=== PATIENT | male | born 1955 | race Caucasian/White ===

== ENCOUNTER 2024-06-26 15:46 | Inpatient (IN) | payer MEDICARE, OTHER, SELFPAY ==
[2024-06-26] VITALS (17 sets, daily range): BP systolic 111–160; BP diastolic 65–131; BMI 29.3
--- NOTE | 2024-06-26 11:35 | W.PN.CARDCBS ---
Today's Communication / Plan
-
LH
trend troponin/CKMB to peak
Impression / Plan
-
This is the H&P summary.
Full H&P scanned into chart.
PCP: Ximena Fonseca,
CDY: Nick Louise MD (none prior to admission, seen in ER)
68 y/o, PMH sig for untreated severe dyslipidemia, active doing yard work and walking dog daily without symptoms.
New onset chest heaviness and arm tingling that started at 2AM prior to going to bed. Denies diaphoresis, dyspnea, palps. No relief from tylenol and therefore brought him to ER. Initial EKG NSR w/RBBB but repeat showed subtle anterior ST
elevations with lateral ST depressions. First HS troponin 17 but repeat elevated to 89 with correlating CK 169, MB 11.4. Started on heparin gtt and given aspirin 324mg, as well as SLNTG for relief of symptoms. BP elevated 160-180s
Echo at [facility] today- preserved LVSF, EF 50%, anteroseptal, apical anterior, apical HK, no sig valvular abnormalities.
Transferred for [facility] today.
IMPRESSION:
Acute NSTEMI
Anterior/apical HK
Severe untreated HLD (last LDL 172 03/2024)
HTN
RBBB
Inguinal hernia (2012)
PLAN:
[facility] today
d/c heparin on arrival from [facility]
trend troponin/CKMB to peak
Anticipate DAPT w/asa, brilinta- CM to check cost
monitor BP with new start beta kiersten, aceI
Started on atorvastatin at [facility] for prior lipid profile- continue
cardiac rehab consult
followup w/Dr. Louise at [facility] at discharge
Progress Note - [facility]
Subjective
Date of Service: June 26, 2024
[2024-06-26 14:43] LABS: Total CK 524 U/L (55-170)
[2024-06-26 15:13] LABS: ACT-LR - POC 279 Seconds (116-155)
--- NOTE | 2024-06-26 16:00 | ITS.CL.CATH ---
Bookstore [facility] - Catheterization
Cardiac Catheterization
Procedure Report:
LEFT HEART CATHETERIZATION
Date of Procedure: June 26, 2024
Procedures performed:
1: Coronary angiography
2: Left ventricular hemodynamic assessment
Primary Care Physician: Dr. Ximena Fonseca
Primary Anesthesiology Tech: Dr. Nick Louise
INDICATION: The patient is a 68-year-old man who presents with a non-ST elevation SC. On arrival to the [facility] he is reporting 1 out of 10 chest discomfort. Echocardiography performed at [facility] showed a low normal ejection fraction at 50%
with mid apical anterior septum, apical anterior and apical hypokinesis.
ACCESS: The patient was prepped and draped in usual sterile fashion. A 6 Irish sheath was placed in the right radial artery using the Seldinger over the wire technique.
HEMODYNAMIC FINDINGS (mmHg):
LV(s/d,EDP): 140/14, 32
Ao(s/d,m): 140/83, 109
ANGIOGRAPHIC FINDINGS:
Single-plane Left Ventriculography in ZULETA Projection: Not done.
Coronary Angiography:
Dominance: Right
Left Main: Normal
Left Anterior Descending: The LAD is a medium caliber vessel that has diffuse proximal 20% disease. The LAD gives rise to 2 tiny diagonal branches which have limited vascular supply but are patent. There is a short segment EQUIPMENT TESTER at the first septal
combination technician. The mid and distal LAD fill via faint left to left and more prominent right to left collaterals revealing a good LAD target.
Left Circumflex: The left circumflex is a large-caliber nondominant system that gives rise to 2 major obtuse marginal branches. The first obtuse marginal branch is a large-caliber tortuous vessel that has a proximal 30% followed by a mid smooth 70%
stenosis and MAMIE-3 distal flow. The second obtuse marginal branch has a smooth 40 to 50% proximal stenosis followed by a preocclusive 99% mid stenosis and MAMIE II distal flow with competitive flow from right to left collaterals.
Right Coronary: The right coronary artery is a large-caliber dominant vessel that gives rise to a large caliber posterior descending artery and medium caliber posterior left ventricular branch system with 4 major branches that are widely patent.
The right coronary artery has mild luminal irregularities throughout the AV groove. The mid to distal PDA has moderate diffuse luminal irregularities without clearly obstructive disease and normal flow.
Note: I called Dr. Richard Govea into the control room to discuss the patient's anatomy. After IV nitro and sedation the patient reported being chest pain-free. He remained hemodynamically stable. I elected to terminate the procedure.
Fluoroscopy Time (min): 5.2
Radiation Dose (mGy): 557
DAP (Gy.cm2): 47
Closure device: None. A TR band was applied for hemostasis at the right wrist.
Complications: None.
ASSESSMENT:
1: Severe multivessel obstructive coronary artery disease with what appears to be a short segment EQUIPMENT TESTER of the LAD just after the takeoff of a small high diagonal branch. The culprit is his second obtuse marginal branch which has a resting flow
abnormality but fills via both antegrade left and right to left collaterals.
2: Elevated left ventricular filling pressures.
CONCLUSIONS and RECOMMENDATIONS:
1: CT surgical evaluation for CABG. If he refuses CABG I would attempt a PCI of the short segment EQUIPMENT TESTER and percutaneous treatment of the culprit OM2.
Bello Ramirez M.D.
Copy to: Dr. Ximena Fonseca
--- NOTE | 2024-06-26 16:15 | CONSULT.CT ---
Consultation
-
Date/Time Consultation Requested: 06/26/2024
Date/Time Consultation Performed: 06/26/2024
Requesting Provider: Dr. Ramirez
Performing Provider: Nyla albert
Reason for Consultation: Evaluation for coronary artery bypass grafting
Patient History
Physicians
Family Physician: Ximena Fonseca
Inpatient Underground Repairer: Dr. Ramirez
History of Present Illness
Patient is a 68-year-old gentleman with a history of untreated severe hyperlipidemia. He presented to the emergency department at [facility] with chest heaviness and arm tingling that began around 2 AM this morning. Patient states he was
in his usual state of health until approximately 2 AM when he decided to go to bed. This is a normal bedtime for him. He noticed that his arms felt heavy and tingly and was also having chest heaviness. He tried to wait it out and took some
Tylenol. Symptoms did not improve and eventually asked his to bring him to the emergency department. In the emergency department [facility] he was evaluated and initial EKG was sinus rhythm with right bundle branch block. Repeat EKG
later showed sinus rhythm with right bundle branch block however now there was subtle ST elevation in lead V2 as well as ST depressions in V5 and V6. He ruled in for NSTEMI with serial enzyme studies. He continued to have mild 3 out of 10 mild
chest heaviness in the emergency department. He denied any prior episodes of chest heaviness prior to his admission. Transthoracic echocardiogram performed at [facility] showed preserved left ventricular systolic function. Left
ventricular ejection fraction was 50%. Normal LV diastolic function. No significant valvular disease.
He was started on nitroglycerin and heparin and transferred to [facility] for cardiac catheterization. Cardiac catheterization performed by Dr. Mario Ramirez showed three-vessel coronary artery disease. Cardiothoracic surgery was consulted
for surgical revascularization.
Preoperative studies will be ordered and all studies reviewed by attending cardiothoracic surgeons. Plan to discuss with patient and family tomorrow.
Past Medical History
Past Medical History: Angina, BPH, CAD, HTN, Hypercholesterolemia and RI
Past Surgical History
Past Surgical History: Abdominal (Inguinal hernia 2012) and Other (Cataracts 2 years ago)
Dental History
n/a
Family History
Mother: at Age
Father: at Age (Father had high cholesterol)
Family Medical History: CAD, Hypertension and Other (High cholesterol)
Social History
Alcohol: Occasional (Drinks wine approximately once a month)
Drug: None
Tobacco: Non-Smoker
Personal:
Living: With Spouse
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
Covid Vaccination History:
Admits to 2 COVID vaccines/denies history of COVID infection
Allergies
Allergy/AdvReac Type Severity Reaction Status Date / Time
No Known Allergies Allergy Unverified 06/26/24 14:07
Home Medications
�Medication �Instructions �Recorded �Confirmed �Type
latanoprost 0.005 % eye drops 1 drp ophthalmic (eye) QPM 06/26/24 06/26/24 History
Review of Systems
-
History Source: Patient and Family
General: Reports Fatigue
HEENT: Reports No Symptoms
Respiratory: Reports No Symptoms
Cardiac: Reports Chest Pain and CAD
Abdomen/GI: Reports No Symptoms
: Reports Nocturia
Musculoskeletal: Reports No Symptoms
Skin: Reports No Symptoms
Neurological: Reports No Symptoms
Vascular: Reports No Symptoms
Physical Exam
Vital Signs
Temp 98.4 F 06/26/24 16:01
Temp route: Oral 06/26/24 16:01
Pulse 63 06/26/24 13:25
Resp Rate 18 06/26/24 16:01
Blood pressure 160/102 06/26/24 13:25
Blood pressure extremity used: Right upper arm 06/26/24 16:01
Position: Lying 06/26/24 16:01
SaO2 95 06/26/24 16:01
Oxygen Mode of Delivery Room air 06/26/24 16:01
Can the patient verbally communicate their pain? Yes 06/26/24 13:25
Actual Weight 203 lb 14.841 oz 06/26/24 15:34
Body Mass Index (BMI) 29.3 06/26/24 15:34
Labs
Troponin I 3.650 ng/ml H* 06/26/24 13:23
Exam
General: Well Developed, Well Nourished, No Apparent Distress and Comfortable
HEENT: Normocephalic, Anicteric and Atraumatic
Neck: Trachea Midline
Respiratory: Clear
Cardiac: Regular Rhythm and Carotid Pulses
GI: Soft, Non Tender, Non Distended and Normal Bowel Sounds
Rectal: Deferred by Provider
Skin: Warm and Dry
Neuro: Awake, Alert, Oriented and AO x 3
Extremities: Pulses (Distal pulses intact bilaterally. Dorsalis pedis pulse +2 bilaterally/posterior tibial pulses +2 bilaterally/no lower extremity edema/no calf tenderness/feet cool and dry)
Lymph: No Lymphadenopathy (No palpable lymphadenopathy)
Psych: Calm
Assessment / Plan
-
Assessment:
Acute NSTEMI-continue heparin / nitroglycerin drip.
Multivessel coronary artery disease status post cardiac catheterization-continue to optimize medical management
Hyperlipidemia
Hypertension
Right bundle branch block
Plan:
Preoperative studies ordered
Started on statin for hyperlipidemia
All studies to be reviewed by attending cardiothoracic surgeons and will discuss surgical plan and timing with patient and family.
[2024-06-26] MEDS: LASIX 20 MG IV (16:20)
[2024-06-26] MEDS: NITROGLYCERIN PREMIX 250 IV (17:20)
[2024-06-26 17:58] LABS: Hematocrit 21.9 % (39.0-52.0); Hemoglobin 7.7 g/dL (13.0-18.0); Mean Corp Hgb Conc. 35.2 g/dL (33.0-37.0); Mean Corpuscular Hgb 32.8 pg (27.0-31.0); Mean Corpuscular Volume 93.2 fL (80.0-94.0); Mean Platelet Volume 8.5 fL (7.4-10.4); Platelet Count 110 10^3/uL (130-400); Red Blood Cell Count 2.35 10^6/uL (4.70-6.10); Red Cell Dist. Width 12.3 % (11.5-14.5); White Blood Cell Count 6.6 10^3/uL (4.8-10.8)
[2024-06-26 18:26] LABS: APTT 46.7 Sec (23.4-35.0)
[2024-06-26] MEDS: LIPITOR 80 MG PO (18:32)
--- NOTE | 2024-06-26 19:47 | PTCARENOTE ---
Rec'd Pt 1545 A,A+O x3, denies pain, R radial band intact, C+D. + radial pulse. Pt needed to blood drawn, while attempting to draw blood , Pt felt nauseous and warm. BP 130's/80's. We gave Pt some time before attempting to draw his blood again. He
then tiffany the blood draw fine, after giving him 15-20 min rest.
[2024-06-26 20:14] LABS: Hemoglobin 14.5 g/dL (13.0-18.0); Mean Corp Hgb Conc. 35.4 g/dL (33.0-37.0); Mean Corpuscular Hgb 31.5 pg (27.0-31.0); Mean Corpuscular Volume 89.1 fL (80.0-94.0); Mean Platelet Volume 8.8 fL (7.4-10.4); Platelet Count 211 10^3/uL (130-400); Red Cell Dist. Width 12.4 % (11.5-14.5); White Blood Cell Count 11.2 10^3/uL (4.8-10.8)
[2024-06-26 20:24] LABS: Total CK 773 U/L (55-170)
[2024-06-26 20:55] LABS: CKMB 60.5 ng/ml (0.0-2.4)
[2024-06-26] MEDS: XALATAN OPHTHALMIC SOLUTION 1 DROP OPHTH (21:07)
[2024-06-26] MEDS: HEPARIN 25000 UNITS/250 ML IV (21:07)
[2024-06-27] VITALS (8 sets, daily range): BP systolic 116–134; BP diastolic 57–78; BMI 27.4
[2024-06-27 04:04] LABS: Hematocrit 41.1 % (39.0-52.0); Mean Corp Hgb Conc. 34.1 g/dL (33.0-37.0); Mean Corpuscular Hgb 31.7 pg (27.0-31.0); Mean Corpuscular Volume 93.2 fL (80.0-94.0); Mean Platelet Volume 9.1 fL (7.4-10.4); Platelet Count 230 10^3/uL (130-400); Red Blood Cell Count 4.41 10^6/uL (4.70-6.10); Red Cell Dist. Width 12.4 % (11.5-14.5); White Blood Cell Count 12.5 10^3/uL (4.8-10.8)
[2024-06-27 04:32] LABS: INR 1.01; PT 13.6 Sec (11.4-14.6)
[2024-06-27 04:33] LABS: APTT 38.5 Sec (23.4-35.0)
[2024-06-27 04:44] LABS: ALT (SGPT) 38 U/L (0-50); AST (SGOT) 158 U/L (17-59); Albumin 3.8 g/dl (3.5-5.0); Alkaline Phosphatase 60 U/L (38-126); Blood Urea Nitrogen 17 mg/dl (9-20); Calcium 8.7 mg/dl (8.4-10.2); Carbon Dioxide 25 mmol/L (22-30); Chloride 102 mmol/L (98-107); Direct Bilirubin 0.1 mg/dl (0.0-0.4); Estimated Creatinine Clearance 91 ml/min; Glucose 109 mg/dl (70-99); HDL Cholesterol 43 mg/dl; LDL Cholesterol, Calculated 145 mg/dl; Potassium 3.6 mmol/L (3.5-5.1); Sodium 136 mmol/L (135-145); Total Bilirubin 1.1 mg/dl (0.2-1.3); Total Cholesterol 204 mg/dl (50-199); Triglyceride 82 mg/dl (10-149); Very Low Density Lipoprotein 16 mg/dl (0-30); eGFR > 60.00
[2024-06-27 04:46] LABS: Total CK 958 U/L (55-170)
[2024-06-27 05:15] LABS: CKMB 52.8 ng/ml (0.0-2.4)
--- NOTE | 2024-06-27 05:26 | PTCARENOTE ---
Pt received at change of shift. SR with BBB on tele with HR 60s. R radial band removed at 2039, site dressed with sterile gauze and Tegaderm, site c/d/i with no complications noted. Education provided on activity restrictions and pt verbalized
understanding. Nitro gtt infusing at 20mcg/min, Heparin infusing at 1200units/hr. Pt denies CP and SOB. Ambulating independently in room without difficulty. Can make needs known. Call pierson within reach.
[2024-06-27] MEDS: LOW STRENGTH ASPIRIN 81 MG PO (08:10)
[2024-06-27 08:39] LABS: Glycohemoglobin (HgbA1c) 5.1 % (4.0-5.6)
[2024-06-27 09:02] LABS: Total CK 933 U/L (55-170)
[2024-06-27 09:51] LABS: CKMB 40.4 ng/ml (0.0-2.4)
--- NOTE | 2024-06-27 10:08 | PTCARENOTE ---
Received patient this morning resting in bed. IV heparin infusing at 1200 units/hr with NTG gtt infusing at 20mcg. Patient denies any chest pain, VSS. Patient sent for his CT of the chest and U/S of the carotids. Labs sent as ordered, troponin still
rising slightly to 22.3, M. Mat TOLL TICKET CLERK notified and will repeat again as ordered. CT surgery notified that patient is back from testing so they may discuss plan of care.
--- NOTE | 2024-06-27 10:13 | CM ---
Reviewed chart. Met with Mr. Reese to review discharge plans. He states prior to admission he resides with his spouse in a two story home without any steps to enter. He states his primary suite is in the first floor. He states prior to
admission he was independent with ambulation and adls. He states he does not have any DME in the home. He states he has a prescription plan and uses [facility]. He states his spouse works outside the home as a registrar college or university and she is
currently on break and will be home until August 02, 2024. Medical work-up in progress. The discharge plan is to return home with his spouse and a home visit by the Transitional Care Nurse when medically stable.
We reviewed pre-op and post-op routines. We briefly reviewed the shower instructions. We also reviewed restrictions including sternal precautions and driving restrictions. We discussed a home visit by the Transitional Care Nurse. He is agreeable
to a home visit. Gave him the Cardiothoracic Surgery Educational Booklet. The plan is for CABG on Wednesday06/28/24.
--- NOTE | 2024-06-27 10:34 | W.PN.CARDCBS ---
Today's Communication / Plan
-
Reviewed cath with pt.
CT surgical eval and work up ongoing
Carotid u/s pending.
Cont IV Heparin
Wean IV nitro next 24 hrs.
Trend troponin until they peak.
Cont ASA and hold Plavix in anticipation of CABG.
New to Lipitor. LDL goal at least less than 70.
New to beta kiersten and ACEI.
Followup w/Dr. Louise at [facility] at discharge
Impression / Plan
-
.
PCP: Ximena Fonseca,
CDY: Nick Louise MD (none prior to admission, seen in ER)
HPI: 68 y/o, PMH sig for untreated severe dyslipidemia, active doing yard work and walking dog daily without symptoms.
New onset chest heaviness and arm tingling that started at 2AM prior to going to bed. Denies diaphoresis, dyspnea, palps. No relief from tylenol and therefore brought him to ER. Initial EKG NSR w/RBBB but repeat showed subtle anterior ST
elevations with lateral ST depressions. First HS troponin 17 but repeat elevated to 89 with correlating CK 169, MB 11.4. Started on heparin gtt and given aspirin 324mg, as well as SLNTG for relief of symptoms. BP elevated 160-180s
Echo at [facility] today- preserved LVSF, EF 50%, anteroseptal, apical anterior, apical HK, no sig valvular abnormalities.
Transferred for [facility] today.
IMPRESSION:
Acute NSTEMI
Anterior/apical HK
Multivessel CAD
Severe untreated HLD (last LDL 172 03/2024)
HTN
RBBB
Inguinal hernia (2012)
PLAN:
Reviewed cath with pt.
CT surgical eval and work up ongoing
Carotid u/s pending.
Cont IV Heparin
Wean IV nitro next 24 hrs.
Trend troponin until they peak.
Cont ASA and hold Plavix in anticipation of CABG.
New to Lipitor. LDL goal at least less than 70.
New to beta kiersten and ACEI.
Followup w/Dr. Louise at [facility] at discharge
Progress Note - Pick Up Driver
Subjective
Date of Service: June 27, 2024
Pt seen and examined. No complaints. No chest pain or shortness of breath.
Objective
Labs:
06/27/24 03:34
06/27/24 03:34
Labs
Hgb 14.0 g/dL (13.0-18.0) 06/27/24 03:34
Hct 41.1 % (39.0-52.0) 06/27/24 03:34
Plt Count 230 10^3/uL (130-400) 06/27/24 03:34
PT Cancelled 06/27/24 06:00
INR Cancelled 06/27/24 06:00
APTT Cancelled 06/27/24 12:00
Sodium 136 mmol/L (135-145) 06/27/24 03:34
Potassium 3.6 mmol/L (3.5-5.1) 06/27/24 03:34
BUN 17 mg/dl (9-20) 06/27/24 03:34
Creatinine 0.8 mg/dL (0.7-1.3) 06/27/24 03:34
Glucose 109 mg/dl (70-99) H 06/27/24 03:34
Troponins
06/26/24 06/26/24 06/27/24
13:23 19:52 03:34
Troponin I 3.650 H* 10.100 H* D 19.500 H* D
06/27/24
08:18
Troponin I 22.300 H*
Vital Signs and I&O:
Vital Signs
Temp Pulse Resp BP Pulse Ox
99.6 F 64 18 119/62 98
06/27/24 07:21 06/27/24 08:00 06/27/24 07:21 06/27/24 07:23 06/27/24 07:21
Vital Signs
Temp Pulse Resp BP Pulse Ox
99.6 F 64 18 119/62 98
06/27/24 07:21 06/27/24 08:00 06/27/24 07:21 06/27/24 07:23 06/27/24 07:21
Intake & Output
06/25/24 06/26/24 06/27/24 06/28/24
06:59 06:59 06:59 06:59
Intake Total 640 / 640
Output Total 1700 / 1700
Balance -1060 / -1060
Physical Exam
Physical Exam
General: No acute distress, AAOX3
Neck: Negative JVD
Heart: Regular, Negative S3 positive S1/S2, Negative S4, No murmur
Lungs: CTA b/l, negative wheezes/rales/rhonchi
Abd: Positive BS, NT/ND, neg rebound/rigidity/guarding
Ext: Negative cyanosis/clubbing/edema
Neuro: nonfocal
[2024-06-27 12:23] LABS: APTT 54.8 Sec (23.4-35.0)
--- NOTE | 2024-06-27 14:03 | PTCARENOTE ---
Report called to [facility] on 2S, patient transferred to room 2104, for surgery tomorrow morning. Belongings sent with the patient, his and son accompanied him.
--- NOTE | 2024-06-27 14:32 | W.PN.UPDATE ---
Update Note
Progress Note Update
CTS risk calc.
Procedure Type:�Isolated CABG
PERIOPERATIVE OUTCOME ESTIMATE %
Operative Mortality 0.709%
Morbidity & Mortality 3.94%
Stroke 0.791%
Renal Failure 0.402%
Reoperation 1.86%
Prolonged Ventilation 1.87%
Deep Sternal Wound Infection 0.087%
Long Hospital Stay (>14 days) 1.89%
Short Hospital Stay (<6 days)* 68%
*higher values reflect a better outcome
Clinical Summary
Planned Surgery: Isolated CABG, Urgent, First cardiovascular surgery
Demographics: 68 year old, White, male, 86kg, 178cm, BMI: 27.1 kg/m�
Insurance/Payor: Commercial
Lab Values: Creatinine: 0.8 mg/dL, Hematocrit: 41.1%, WBC Count: 12.5 10�/�L, Platelet Count: 189764 cells/�L
Substance Abuse: Never smoker, Alcohol use: <=1 drink/week
Risk Factors / Comorbidities: Hypertension, Family Hx of CAD
Cardiac Status: NYHA Class II, Ejection Fraction = 50%
Coronary Artery Disease: 2 vessels diseased, Proximal LAD Stenosis >=70%, Non-ST Elevation PR, PR: 1 to 7 Days
--- NOTE | 2024-06-27 16:26 | PTCARENOTE ---
Patient transferred to room 2265 for surgery tomorrow, report given to Bhavana. Dr. Corbin to see the patient, waiting with the patient in the room.
--- NOTE | 2024-06-27 17:25 | PTCARENOTE ---
Received pt from IVU RN. AAO x 3 ambulating in room, NItro and Heparin infusing. Placed on monitor. DR Corbin in to see pt
[2024-06-27] MEDS: LIPITOR 80 MG PO (17:44)
[2024-06-27] MEDS: XALATAN OPHTHALMIC SOLUTION 1 DROP OPHTH (17:54)
--- NOTE | 2024-06-27 17:58 | W.PN.UPDATE ---
Update Note
Progress Note Update
CARDIAC SURGERY ATTENDING:
I had a long conversation with Mr. Reese and his at bedside. He is an extremely pleasant 68-year-old gentleman with multivessel CAD including a MORTAR MAKER of his LAD and significant left circumflex disease. His right coronary has very distal
disease. I believe he will benefit from surgical coronary revascularization. I anticipate LARS to LAD, greater saphenous vein to OM1, and greater saphenous vein to OM 2. His RCA/PDA does not require surgical bypass. He has 50 to 69% JADE disease
and less than 50% LICA disease with antegrade flow in bilateral vertebrals. His CT chest demonstrated severe calcific atherosclerotic plaques in his left coronary artery and moderate calcific atherosclerotic plaque in his right coronary artery he
had mild plaque in his thoracic aorta, but his ascending aorta is largely uninvolved. He had some minor subsegmental atelectasis and scarring in bilateral basal segments of the lungs. His troponins peaked at 22.3 and are downtrending. The
remainder of his lab work is unremarkable.
We discussed his coronary pathology, the proposed operative interventions, the associated operative risks (including, but not limited to, , stroke, DC, arrhythmia, PNA, DAKOTAH/F, bleeding, and infection), reviewed the expected in-hospital
postprocedural course, and discussed expected outpatient recovery. All questions were answered to the best of my abilities. The patient is agreeable to proceed with surgery. Informed consent has been obtained. I will proceed to surgery tomorrow
morning 06/28/2024.
Thank you for the opportunity to precipitate in the care of this patient.
Octavio Corbin MD
[phone]
.
[2024-06-27 18:27] LABS: APTT 85.9 Sec (23.4-35.0)
--- NOTE | 2024-06-27 20:00 | PTCARENOTE ---
Assumed care of patient at 1900. Patient is AOx4, follows commands appropriately, moves all extremities. Lung sounds are clear and equal bilat. saO2 94% on RA. Heart sounds are audible, patient is SR with PVCs on the monitor, normal palpable pulses,
and no observable edema. Patient has normal active BS throughout all four quadrants and is voiding without difficulty in bathroom. Patient has L FA PIV receiving heparin and nitro gtt. Skin grossly intact. No c/o pain. Patient clipped and given CHG
shower. Call pierson within reach.
[2024-06-28] VITALS (20 sets, daily range): BP systolic 86–142; BP diastolic 53–75; BMI 27.2
--- NOTE | 2024-06-28 00:28 | PTCARENOTE ---
Patient reassessed. VSS. No c/o pain. Remains SR with PVCs on the monitor.
[2024-06-28 04:19] LABS: Hematocrit 37.4 % (39.0-52.0); Hemoglobin 13.1 g/dL (13.0-18.0); Mean Corpuscular Hgb 31.8 pg (27.0-31.0); Mean Corpuscular Volume 90.8 fL (80.0-94.0); Mean Platelet Volume 9.1 fL (7.4-10.4); Platelet Count 205 10^3/uL (130-400); Red Blood Cell Count 4.12 10^6/uL (4.70-6.10); Red Cell Dist. Width 12.3 % (11.5-14.5); White Blood Cell Count 12.6 10^3/uL (4.8-10.8)
[2024-06-28 04:30] LABS: APTT 96.3 Sec (23.4-35.0)
[2024-06-28 04:38] LABS: Blood Urea Nitrogen 19 mg/dl (9-20); Calcium 8.8 mg/dl (8.4-10.2); Carbon Dioxide 27 mmol/L (22-30); Chloride 102 mmol/L (98-107); Estimated Creatinine Clearance 81 ml/min; Glucose 115 mg/dl (70-99); Potassium 3.6 mmol/L (3.5-5.1); Sodium 135 mmol/L (135-145); eGFR > 60.00
[2024-06-28] MEDS: PROTONIX 40 MG PO (05:40)
[2024-06-28] MEDS: MAGNESIUM OXIDE 500 MG PO (05:40)
[2024-06-28] MEDS: BACTROBAN 2% OINTMENT 1 APPLIC NASAL ×2 (05:40→20:37)
[2024-06-28] MEDS: LOPRESSOR 25 MG PO (05:40)
--- NOTE | 2024-06-28 07:27 | PTCARENOTE ---
AM hygiene care provided. Second G shower provided. Preop medications administered. Patient transported to [facility] at approx 0650 without incident.
[2024-06-28 07:49] LABS: Urine Albumin Trace (Neg - Trace); Urine Bilirubin Negative (Negative); Urine Character Slightly Cloudy (Clear); Urine Color Yellow; Urine Glucose Negative (Negative); Urine Ketone 1+ (Negative); Urine Leukocyte Negative (Negative); Urine Nitrite Negative (Negative); Urine Occult Blood 4+ (Negative); Urine Urobilinogen Negative (Neg - 1+)
[2024-06-28 07:54] LABS: ACT+ - POC 101 Seconds (82-134)
[2024-06-28 08:37] LABS: Urine Mucus Few
[2024-06-28 08:38] LABS: Urine Red Blood Cell >100 /HPF (0-2)
[2024-06-28 08:39] LABS: Urine Bacteria Few (Negative)
[2024-06-28 09:49] LABS: ACT+ - POC 599 Seconds (82-134)
[2024-06-28 10:08] LABS: B.E. - POC 0.3 mmol/L; Glucose - POC 105 mg/dl (70-99); HCO3 - POC 24 mmol/L (21-28); Hematocrit - POC 34 % PCV (42-52); Hemodilution- POC No; Hemoglobin Calculated - POC 11.7; Ionized Calcium - POC 1.15 mmol/L (1.15-1.33); O2 Saturation %Calculated-POC 99.7 % (94-98); PCO2 - POC 36 mmHg (35-48); PO2 - POC 186 mmHg (83-108); POC Comment PRE; Potassium - POC 3.2 mmol/L (3.5-5.1); Sodium - POC 140 mmol/L (136-145); Specimen Type - POC Arterial; pH - POC 7.44 (7.35-7.45)
[2024-06-28 10:25] LABS: ACT+ - POC 601 Seconds (82-134)
[2024-06-28 10:46] LABS: B.E. - POC 3.9 mmol/L; Glucose - POC 99 mg/dl (70-99); HCO3 - POC 28 mmol/L (21-28); Hematocrit - POC 27 % PCV (42-52); Hemodilution- POC Yes; Hemoglobin Calculated - POC 9.3; PCO2 - POC 41 mmHg (35-48); PO2 - POC 426 mmHg (83-108); POC Comment CPB; Potassium - POC 4.1 mmol/L (3.5-5.1); Sodium - POC 139 mmol/L (136-145); Specimen Type - POC Arterial; pH - POC 7.44 (7.35-7.45)
[2024-06-28 11:04] LABS: ACT+ - POC 512 Seconds (82-134)
[2024-06-28 11:24] LABS: B.E. - POC -1.4 mmol/L; Glucose - POC 145 mg/dl (70-99); HCO3 - POC 24 mmol/L (21-28); Hematocrit - POC 34 % PCV (42-52); Hemodilution- POC Yes; Hemoglobin Calculated - POC 11.6; Ionized Calcium - POC 1.07 mmol/L (1.15-1.33); O2 Saturation %Calculated-POC 99.9 % (94-98); PCO2 - POC 41 mmHg (35-48); PO2 - POC 264 mmHg (83-108); POC Comment CPB; Potassium - POC 4.6 mmol/L (3.5-5.1); Sodium - POC 139 mmol/L (136-145); Specimen Type - POC Arterial; pH - POC 7.38 (7.35-7.45)
[2024-06-28 11:37] LABS: ACT+ - POC 475 Seconds (82-134)
[2024-06-28 11:47] LABS: B.E. - POC 0.7 mmol/L; Glucose - POC 142 mg/dl (70-99); HCO3 - POC 25 mmol/L (21-28); Hematocrit - POC 32 % PCV (42-52); Hemodilution- POC Yes; Hemoglobin Calculated - POC 10.9; Ionized Calcium - POC 1.07 mmol/L (1.15-1.33); O2 Saturation %Calculated-POC 99.9 % (94-98); PCO2 - POC 39 mmHg (35-48); PO2 - POC 282 mmHg (83-108); POC Comment REWARM; Potassium - POC 4.6 mmol/L (3.5-5.1); Sodium - POC 139 mmol/L (136-145); Specimen Type - POC Arterial; pH - POC 7.42 (7.35-7.45)
[2024-06-28 11:53] LABS: ACT+ - POC 104 Seconds (82-134)
[2024-06-28 12:24] LABS: B.E. - POC 2.7 mmol/L; Glucose - POC 138 mg/dl (70-99); HCO3 - POC 27 mmol/L (21-28); Hematocrit - POC 29 % PCV (42-52); Hemodilution- POC Yes; Hemoglobin Calculated - POC 9.8; Ionized Calcium - POC 1.15 mmol/L (1.15-1.33); O2 Saturation %Calculated-POC 98.8 % (94-98); PCO2 - POC 40 mmHg (35-48); PO2 - POC 119 mmHg (83-108); POC Comment POST; Potassium - POC 4.2 mmol/L (3.5-5.1); Sodium - POC 140 mmol/L (136-145); Specimen Type - POC Arterial; pH - POC 7.44 (7.35-7.45)
--- NOTE | 2024-06-28 12:29 | W.CVOR.SURPR ---
CVOR Surgeon Immed Pre Op
-
I have examined this patient prior to performance of the scheduled procedure.
The patient's condition is unchanged from the time of the dictated/written History and
Physical and the patient is able to undergo the scheduled procedure.
--- NOTE | 2024-06-28 12:30 | W.IMMPOSTOP ---
Addendum entered and electronically signed by Octavio Corbin MD 06/28/24 13:14:
[id number]
Original Note:
Surgical Immed Post Op Note
-
CARDIAC SURGERY OPERATIVE NOTE:
Preoperative Dx:
MVCAD including PRODUCTION SUPV of LAD
NSTEMI
Postoperative Dx:
Same
Procedures:
1) Median sternotomy
2) Takedown of LARS (narrow pedicle)
3) Endoscopic harvest/prep of RLE GSV
4) CABG x 3 (LARS to LAD, GSV to OM1, GSV to OM2)
Surgeon:
Octavio Corbin M.D.
Property And Supply Officer:
Ana Zapien P.A.-C.; endoscopic harvest/prep of RLE GSV - blacksmith assistant throughout
Perfusion:
Fan Thayer.C.P.; XC: 66min, CPB: 96min
Anesthesia:
Rick Levi M.D. and Alli Clayton.N.A.
Findings:
LARS was healthy conduit w/ brisk blood flow - ELD 2.00mm
GSV was healthy conduit - ELD 3.25mm
LAD was visible from midpoint to the apex, then took shallow intramyocardial course. Anastomosis performed at distal midpoint, ELD 2.25mm - brisk blood flow filled LAD and backfilled all visible diagonal branches
OM1 was visible on the epicardial surface, scattered calcifications, ELD 2.5mm
OM2 was visible on the epicardial surface, scant scattered calcifications, ELD 2.5mm
Excellent flow in all grafts on transit-time U/S flow probe assessment
Post-HORACE: LVEF 55-60%, no sig valvular heart disease
Complications:
None
Transfusions:
None
Implants:
CT x 4 (B/L pleural, inferior mediastinal, superior mediastinal)
Sternal wires x 7
Sternal 'X' plate and 8 - 14mm screws
Sternal 'Square' plate and 4 - 12mm screws
Condition:
Sinus w/ BBB @ 62; 108/66, CVP 19, 98%
GTTS: levophed 4, insulin 1, precedex 0.5
Stable/guarded to CVICU
--- NOTE | 2024-06-28 12:37 | CON.INTV ---
Consultation
Consultation Request
Date/Time Consultation Requested: 06/28/2024 - 1206
Date/Time Consultation Performed: 06/28/2024 - 1233
Requesting Provider: MEDARDO Schumacher
Performing Provider: Robby Lopez MD
Reason for Consultation: s/p CABG x3
Medical History
-
Chief Complaint: Chest pain
History of Present Illness:
68-year-old male non-smoker with a past medical history of hyperlipidemia, hypertension, CAD and BPH who initially was transferred here from [facility] for left heart catheterization due to NSTEMI. He initially went to [facility] ER
with chest pain. Initial EKG reportedly showed RBBB with later EKG showing subtle ST elevations in lead V2 and ST depressions in V5�6. He was diagnosed with NSTEMI and continued to have chest heaviness. Transthoracic echo performed at [facility] showed
preserved LVEF at 50% with no significant valvular disease. Heparin drip + nitroglycerin drip started and he was transferred here to [place] for cardiac catheterization. Left heart catheterization performed on 06/26/2024 showing severe
multivessel CAD with what appeared to be short segment PATTERN MAKER of the LAD with culprit lesion thought to be the second obtuse marginal branch. He also had elevated LVEDP of 13 mmHg. Cardiothoracic surgery was consulted and cardiothoracic intervention
was reviewed in detail with risks and benefits and the patient agreed to intervention. Today he underwent CABG x 3 and there were no complications. He was transferred to the CVICU with bilateral pleural chest tubes and mediastinal chest tubes x 2.
Ribbing Machine Operator service is now consulted for additional management/recommendations.
When I saw the patient he was resting in bed in no acute distress on CPAP trial on 11/13 at 40% FiO2, with PIP: 11 cmH2O, VTe 584 cc and breathing at 11 breaths/min. BP via left radial A-line was 92/51, BP via NIBP: 86/54, SpO2 95% and CVP: 8. He
was on Levophed at 2mcg/min, Precedex at 0.3mcg/kg/hr and insulin drip at 2.6 units/hr.
PMHx: Hyperlipidemia, BPH, CAD, hypertension, history of NM
PSHx: Inguinal hernia surgery, cataract surgery
Past Medical History
Past Medical History: Other (Above as per HPI)
Past Surgical History: Other (Above as per HPI)
Social History
Tobacco: Non-smoker
Alcohol: Occasional
Drug: None
Personal:
Living: With Family
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
Family History
Family History: Other (Father: Hypercholesterolemia)
Allergies / Home Medications
Allergies
Allergy/AdvReac Type Severity Reaction Status Date / Time
No Known Allergies Allergy Unverified 06/26/24 14:07
Home Medications
�Medication �Instructions �Recorded �Confirmed �Last Taken �Type
latanoprost 0.005 % eye drops 1 drp ophthalmic (eye) QPM Eye 06/26/24 06/26/24 06/26/24 02:00 History
Condition
Review of Systems
-
Unable to Obtain full review of systems at this time due to: Patient Intubation
Vitals / Labs / Diagnostic Testing
Vital Signs
Temp Pulse Resp BP Pulse Ox
99.5 F 76 16 120/70 95
06/28/24 05:49 06/28/24 05:49 06/28/24 05:49 06/28/24 05:49 06/28/24 05:49
Laboratory Results
06/27/24 06/28/24 06/28/24
18:09 04:05 12:56
APTT 85.9 H 96.3 H
pH 7.41
pCO2 42
pO2 144 H
HCO3 26.6
O2 Delivery Level vent
Microbiology
06/26/24 17:45 Nose MRSA Screen - Final
No Methicillin Resistant Staphylococcus aureus isolated.
Diagnostic Testing:
Physical Exam
-
HEENT: Normocephalic, Anicteric and Other (ETT in place)
Cardiovascular: S1/S2 and Peripheral Edema (negative)
Respiratory: Wheeze (negative), Rales (negative), Rhonchi (negative), Non-Labored Respirations, Other (Mechanical breath sounds heard bilaterally) and Other (Chest tubes: bilateral pleural chest tubes + mediastinal chest tubes x 2)
GI: Soft, Non Distended, Non Tender and Normal Bowel Sounds
Neurology: Tremors (negative) and Other (Sedated)
Skin: Warm and Dry
General: Respiratory Distress (negative), Comfortable, Chills (negative) and Sweats (negative)
Assessment
-
Assessment: 68-year-old male non-smoker with a past medical history of hyperlipidemia, hypertension, CAD and BPH who initially was transferred here from [facility] for left heart catheterization due to NSTEMI. He initially went to
[facility] ER with chest pain. Initial EKG reportedly showed RBBB with later EKG showing subtle ST elevations in lead V2 and ST depressions in V5�6. He was diagnosed with NSTEMI and continued to have chest heaviness. Transthoracic echo
performed at [facility] showed preserved LVEF at 50% with no significant valvular disease. Heparin drip + nitroglycerin drip started and he was transferred here to [place] for cardiac catheterization. Left heart catheterization performed on 06/26/2024
showing severe multivessel CAD with what appeared to be short segment PATTERN MAKER of the LAD with culprit lesion thought to be the second obtuse marginal branch. He also had elevated LVEDP of 13 mmHg. Cardiothoracic surgery was consulted and
cardiothoracic intervention was reviewed in detail with risks and benefits and the patient agreed to intervention. On 06/28/2024 he underwent CABG x 3 and there were no complications. He was transferred to the CVICU with bilateral pleural chest
tubes and mediastinal chest tubes x 2. Ribbing Machine Operator service is now consulted for additional management/recommendations.
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
Impression:
#Multivessel CAD including PATTERN MAKER of the LAD with recent NSTEMI s/p CABG x 3 (LARS to LAD, GSV to OM1 and GSV to OM2 - POD#0)
#Anemia
#NSTEMI
#Hyperlipidemia
#Hypertension
#History of NM
#BPH
Plan:
Ventilator settings reviewed
FiO2 will be weaned to maintain SpO2 >90-94%
Minute ventilation will be adjusted
Arterial blood gases will be monitored
Spontaneous breathing trial will be attempted with hopeful extubation after anesthesia/sedation wear off
prn nebulized bronchodilators
Pulmonary artery catheter parameters will be followed
Pressors/antihypertensive/inotropes/diuretics will be provided as needed
Maintain MAP>65
Replete electrolytes with K>4, Mg>2
Monitor chest tube output (bilateral pleural chest tubes + mediastinal chest tubes x 2)
Monitor hemoglobin
Monitor platelet count and coags
Transfuse blood products as needed to maintain Hb>7g/dL, plt>50k (given post-operative status)
CT surgery managing chest tubes
Monitor blood sugar to maintain euglycemia with goal BG 140-180
Insulin drip per protocol
Aspiration precautions
VAP prevention protocol
DVT prophylaxis
Early nutrition
Early mobilization
Critical care statement: A total of 46 minutes of critical care time was provided for this patient today. This includes management of ventilator, spontaneous breathing trial, arterial blood gases, pressors, of unstable vital signs, evaluation of the
patient at bedside, reviewing the patient's pertinent medical records including radiographs, microbiology, laboratory evaluations, and discussion with primary team and critical care nursing.
[2024-06-28 13:01] LABS: Glucose - Point of Care 133 mg/dl (70-99)
[2024-06-28 13:09] LABS: Hematocrit 32.9 % (39.0-52.0); Hemoglobin 11.6 g/dL (13.0-18.0); Platelet Count 157 10^3/uL (130-400)
[2024-06-28 13:14] LABS: B.E. 1.7 mmol/L; HCO3 26.6 mmol/L (21-28); Ionized Calcium 1.19 mMOL/L (1.15-1.33); O2 Saturation % 98.8 % (94-98); PCO2 42 mmHg (35-48); PO2 144 mmHg (83-108); Potassium 3.8 mMOL/L (3.5-5.1); Sodium 134 mMOL/L (136-145); pH 7.41 (7.35-7.45)
[2024-06-28 13:15] LABS: O2 Therapy vent
[2024-06-28 13:30] LABS: INR 1.31; PT 16.8 Sec (11.4-14.6)
[2024-06-28] MEDS: KCL 50 IV ×2 (13:32→14:56)
[2024-06-28 13:41] LABS: Blood Urea Nitrogen 17 mg/dl (9-20); Estimated Creatinine Clearance 81 ml/min; Glucose 134 mg/dl (70-99); Magnesium 2.7 mg/dl (1.6-2.3)
--- NOTE | 2024-06-28 14:00 | PTCARENOTE ---
Pt received from CVOR at 1300; Sedated and intubated; NSR rhythm on monitor; VSS; DP and radial pulses present; Lungs diminished at bases; ETT size 8 positioned and secured at 23 cm right lip; Ventilator settings SIMV 14/500/60%/5peep; CTx4 to -20
cm wall suction draining bloody drainage - no air leak, tidaling, or crepitus noted; Hypoactive BS; Hart catheter in place draining clear, yellow urine; Sternal incision glued, approximated, and FLATBED TRUCK DRIVER, Left A-line in place, Right Cordis in place -
all lines zeroed and leveled; #18 PIV present in right wrist; Levo/insulin/precedex/infusing - see nursing flowsheets for further details; see nursing documentation for further details.
[2024-06-28 14:18] LABS: Glucose - Point of Care 130 mg/dl (70-99)
[2024-06-28] MEDS: NEURONTIN PO ×2 (14:29→19:22)
[2024-06-28] MEDS: NSS 500 IV (14:30)
--- NOTE | 2024-06-28 14:35 | CM ---
Chart reviewed. Patient is in the OR today. Patient is independent of ADLS, lives with his in a 2 STH, 1st floor set up, 0 DELORIS, 0 DME. Plan is for the patient to return home with CT Transitional RN. CM to follow
--- NOTE | 2024-06-28 14:44 | W.PN.UPDATE ---
Update Note
Progress Note Update
68 year old male initially presented to [facility] 06/26 for complaint of arm tingling. Patient ruled in for non-STEMI from troponins. A TTE reported EF of 50%. Patient was transferred to [facility] for Left heart cath which reported
3VCAD
IVF: 1000
U.O.:� 400
Blood:� none
Wires:� none
Inotropes:� none
Pressors:� Levophed
Sedatives:� Precedex
�
NEURO: sedated on Precedex, pupils +2mm B/L
RESP: #8OT @24cm> 500/60%/14/5. Lungs clear B/L. 2 mediastinal (10cc on arrival) and R/L pleural (20cc on arrival) chest tubes to -20cm suction. Sanguineous drainage
CV: RRR +S1, S2, no S3, no�rub, no murmur. Dermabond to median sternotomy. RIJ intact
ABD: round, soft, no BS
EXT: no edema, +2/4 DP pulses B/L, no femoral bruit, RLE KIMBERLY wrap intact; left radial A-line intact
: Hart with clear yellow urine
�
A/P: POD #0 s/p CABG x 3 (LARS to LAD, GSV to OM1, GSV to OM2)
HORACE: EF�55-60%
- wean and extubate
# NSTEMI/CAD
- will require SA/Plavix, beta-kiersten, statin
�
# acute surgical blood loss anemia-expected
- Hb 11.6
- trend CBC
�
�
�
[2024-06-28 14:57] LABS: O2 Saturation % 98.9 % (94-98); PCO2 42 mmHg (35-48); PO2 111 mmHg (83-108)
[2024-06-28 15:12] LABS: Glucose - Point of Care 123 mg/dl (70-99)
--- NOTE | 2024-06-28 15:15 | PTCARENOTE ---
pt extubated 1515; 6L nc; IS 1500
[2024-06-28] MEDS: DILAUDID 0.5 MG IV (15:20)
--- NOTE | 2024-06-28 15:23 | W.PN.CARDCBS ---
Today's Communication / Plan
-
Stable cardiology status status post CABG
Impression / Plan
-
.
PCP: Ximena Fonseca,
CDY: Nick Louise MD (none prior to admission, seen in ER)
HPI: 68 y/o, PMH sig for untreated severe dyslipidemia, active doing yard work and walking dog daily without symptoms.
New onset chest heaviness and arm tingling that started at 2AM prior to going to bed. Denies diaphoresis, dyspnea, palps. No relief from tylenol and therefore brought him to ER. Initial EKG NSR w/RBBB but repeat showed subtle anterior ST
elevations with lateral ST depressions. First HS troponin 17 but repeat elevated to 89 with correlating CK 169, MB 11.4. Started on heparin gtt and given aspirin 324mg, as well as SLNTG for relief of symptoms. BP elevated 160-180s
Echo at [facility] today- preserved LVSF, EF 50%, anteroseptal, apical anterior, apical HK, no sig valvular abnormalities.
Transferred for [facility] today.
IMPRESSION:
Status post CABG with CABRERA to LAD, GSV to OM1, GSV to OM 2 -06/28/2024
Acute NSTEMI
Anterior/apical HK
Multivessel CAD
Severe untreated HLD (last LDL 172 03/2024)
HTN
RBBB
Inguinal hernia (2012)
PLAN:
Patient seen immediately postop
Hemodynamically stable on low-dose Levophed.
Remains in sinus rhythm
Discussed with nursing and CT surgery PA's
Followup w/Dr. Louise at [facility] at discharge
Progress Note - Hot Packer
Subjective
Date of Service: June 28, 2024
Patient sedate postop
Objective
Labs:
06/28/24 12:56
Labs
Hgb 11.6 g/dL (13.0-18.0) L 12/18/24 12:56
Hct 32.9 % (39.0-52.0) L 06/28/24 12:56
Plt Count 157 10^3/uL (130-400) D 06/28/24 12:56
PT 16.8 Sec (11.4-14.6) H 06/28/24 12:56
INR 1.31 06/28/24 12:56
APTT 32.0 Sec (23.4-35.0) 06/28/24 12:56
Sodium 135 mmol/L (135-145) 06/28/24 04:05
Potassium 3.6 mmol/L (3.5-5.1) 06/28/24 04:05
BUN 17 mg/dl (9-20) 06/28/24 12:56
Creatinine 0.9 mg/dL (0.7-1.3) 06/28/24 12:56
Glucose 134 mg/dl (70-99) H 06/28/24 12:56
Troponins
06/26/24 06/26/24 06/27/24
13:23 19:52 03:34
Troponin I 3.650 H* 10.100 H* D 19.500 H* D
06/27/24 06/27/24
08:18 14:32
Troponin I 22.300 H* 17.800 H*
Vital Signs and I&O:
Vital Signs
Temp Pulse Resp BP Pulse Ox
98.4 F 66 15 54 98
06/28/24 15:00 06/28/24 15:00 06/28/24 15:00 06/28/24 14:00 06/28/24 15:00
Vital Signs
Temp Pulse Resp BP Pulse Ox
98.4 F 66 15 8654 98
06/28/24 15:00 06/28/24 15:00 06/28/24 15:00 06/28/24 14:00 06/28/24 15:00
Intake & Output
06/26/24 06/27/24 06/28/24 12/19/24
06:59 06:59 06:59 06:59
Intake Total 640 / 640 804 / 804 98.3 / 98.3
Output Total 1700 / 1700 300 / 300
Balance -1060 / -1060 804 / 804 -201.7 / -201.7
Physical Exam
Physical Exam
General: Sedate
Neck: Supple, no JVD, HJR, carotids +2 B/L, no bruits bilaterally.
Heart: Non displaced PMI, RRR, no murmurs, No S3, S4, no rubs.
Lungs: Scattered rhonchi
Sternal dressings noted
Extremities: No clubbing, cyanosis or edema bilaterally.
Neuro: Sedate
[2024-06-28 16:10] LABS: Glucose - Point of Care 105 mg/dl (70-99)
[2024-06-28] MEDS: OFIRMEV 100 IV (16:16)
[2024-06-28 16:48] LABS: Hematocrit 33.7 % (39.0-52.0); Hemoglobin 11.8 g/dL (13.0-18.0); Platelet Count 206 10^3/uL (130-400)
[2024-06-28 17:17] LABS: Glucose - Point of Care 94 mg/dl (70-99)
[2024-06-28] MEDS: ANCEF 5 IV (17:54)
[2024-06-28] MEDS: LOW STRENGTH ASPIRIN 81 MG PO (17:55)
[2024-06-28] MEDS: TYLENOL PO (18:00)
[2024-06-28] MEDS: XALATAN OPHTHALMIC SOLUTION OPHTH (19:22)
[2024-06-28] MEDS: PACERONE PO (19:22)
[2024-06-28] MEDS: LIPITOR PO (19:22)
[2024-06-28] MEDS: LOW STRENGTH ASPIRIN PO (19:23)
[2024-06-28 19:31] LABS: Glucose - Point of Care 119 mg/dl (70-99)
--- NOTE | 2024-06-28 20:00 | PTCARENOTE ---
Assumed care of patient at 1900. Patient found in bed at time of assessment. Patient is AOx4, follows commands appropriately, moves all extremities. Lung sounds are diminished in the bases, saO2 94% on 2L via NC, patient has normal palpable pulses
and no observable edema. Patient has hypoactive BS with a pulido draining clear yellow urine. There is a sternal incision with aquacell dressing that is CDI, a R groin puncture approx with surg adhesive SITA, and a RLE incision with KIMBERLY wrap. Patient
has a R IJ cordis with a slic, L radial Squire, and R FA PIV as well a L FA PIV. Patient is on an insulin gtt. Patient has no c/o pain at this time. Call pierson within reach.
[2024-06-28] MEDS: XALATAN OPHTHALMIC SOLUTION 1 DROP OPHTH (20:36)
[2024-06-28] MEDS: SENOKOT-S 1 TABLET PO (20:37)
[2024-06-28 21:12] LABS: Glucose - Point of Care 94 mg/dl (70-99)
[2024-06-28] MEDS: CARDENE 200 IV (21:56)
[2024-06-28] MEDS: NEURONTIN 100 MG PO (22:00)
[2024-06-28] MEDS: PACERONE 200 MG PO (22:00)
[2024-06-28] MEDS: TYLENOL 1000 MG PO (22:00)
[2024-06-28 23:10] LABS: Glucose - Point of Care 97 mg/dl (70-99)
[2024-06-29] VITALS (24 sets, daily range): BP systolic 106–140; BP diastolic 56–85; PULSE 66; O2SAT 70–97; BMI 27.5
--- NOTE | 2024-06-29 | PTCARENOTE ---
Patient reassessed. BP noted to be slightly elevated on [place] SBP>140 MAP ranging 85-91. CT PA notified advised to initiate cardene at 2.5 mcg. Following introduction of cardene BP <130 MAP ranging 75-85. Patient has no c/o pain. All other VSS.
Remains SR on the monitor. Call pierson within reach.
[2024-06-29 01:16] LABS: Glucose - Point of Care 129 mg/dl (70-99)
[2024-06-29] MEDS: ANCEF 5 IV ×2 (03:10→11:13)
[2024-06-29 03:11] LABS: Glucose - Point of Care 88 mg/dl (70-99)
[2024-06-29 03:21] LABS: Hematocrit 35.4 % (39.0-52.0); Hemoglobin 12.1 g/dL (13.0-18.0); Mean Corp Hgb Conc. 34.2 g/dL (33.0-37.0); Mean Corpuscular Hgb 31.6 pg (27.0-31.0); Mean Corpuscular Volume 92.4 fL (80.0-94.0); Mean Platelet Volume 9.6 fL (7.4-10.4); Platelet Count 190 10^3/uL (130-400); Red Blood Cell Count 3.83 10^6/uL (4.70-6.10); Red Cell Dist. Width 12.7 % (11.5-14.5); White Blood Cell Count 18.2 10^3/uL (4.8-10.8)
[2024-06-29 03:58] LABS: Blood Urea Nitrogen 19 mg/dl (9-20); Calcium 8.4 mg/dl (8.4-10.2); Carbon Dioxide 26 mmol/L (22-30); Chloride 106 mmol/L (98-107); Estimated Creatinine Clearance 91 ml/min; Glucose 94 mg/dl (70-99); Magnesium 2.5 mg/dl (1.6-2.3); Potassium 4.1 mmol/L (3.5-5.1); Sodium 137 mmol/L (135-145); eGFR > 60.00
--- NOTE | 2024-06-29 04:08 | W.PN.CT ---
Today's Communication / Plan
-
-pod #1
-no issues overnight
-drips: Insulin. Cardene is off
-CT outputs: 2 meds 75/148, 2 pleur 45/130 in 12/24 hrs
-deline
-d/c insulin
-d/c Hart (hx BPH, not on Flomax preop).
-current meds (ASA, Plavix, Lipitor, Lopressor, Amio, Feosol, Protonix)
-encourage IS, OOB
Assessment / Plan
-
- Mv-CAD/ NSTEMI - s/p CABG x 3 (LARS to LAD, GSV to OM1, GSV to OM2) on 06/28/[address] Corbin, pod #1
- Post-HORACE: LVEF 55-60%, no sig valvular heart disease
- HTN/HLD
- BPH
- Inguinal hernia repair 2012
- Cataracts
- Non-smoker
- Acute postop blood loss anemia - stable
- Acute postop atelectasis
- Suspected acute postop pericarditis/+ rub
- Acute postop hypovolemia with with subsequent hypervolemia
Discussed patient care with: Nursing and Care Team
Subjective
-
Date of Service: June 29, 2024
Objective Data
-
PT 16.8 Sec (11.4-14.6) H 06/28/24 12:56
INR 1.31 06/28/24 12:56
APTT 32.0 Sec (23.4-35.0) 06/28/24 12:56
Vital Signs
Vital Signs
Temp Pulse Resp BP Pulse Ox
99.4 F 68 13 123/67 95
06/29/24 00:00 06/29/24 00:00 06/29/24 00:00 06/29/24 00:00 06/29/24 00:00
CT Intake/Output/Weight
06/28/24 06/28/24 06/29/24
06:59 18:59 06:59
Intake Total 204 / 804 197.1 / 346.4 149.3 / 346.4
Output Total 568 / 868 300 / 868
Balance 204 / 804 -370.9 / -521.6 -150.7 / -521.6
SaO2: 95
Physical Exam
-
General: Awake and AOx3
Cardiovascular: Regular rate & rhythm, No Murmurs and Rub
Respiratory: Decreased Breath Sounds
Sternum: Stable
Incision: Clean, Dry and Intact
Extremities: No Edema (2+ DPs b/l)
Abdomen: soft, nontender, nondistended, + decreased bowel sounds
Data Reviewed
-
Lab Results: Results Reviewed
Medications: Active Meds Reviewed
Chest X-Ray: Report Reviewed and Image Reviewed
ECG: Report Reviewed and Image Reviewed
[2024-06-29 05:27] LABS: Glucose - Point of Care 110 mg/dl (70-99)
--- NOTE | 2024-06-29 05:30 | PTCARENOTE ---
Patient reassessed. VSS. AM hygiene care provided. AM EKG obtained. AM labs obtained. Received orders to deline patient and remove pulido. Patient is DTV at 1130 today. Remains SR on the monitor. No c/o pain. Call pierson within reach.
--- NOTE | 2024-06-29 06:11 | W.PN.ANS.POP ---
Anesthesia Post Operative
- Anesthesia Post Op Note
Vital Signs Stable-See Nursing Note: Yes
Airway Patent: Yes
Adequate Pain Control: Yes
Change in Mental Status: No
Current Postoperative Nausea & Vomiting: No
Anesthesia Complications: No
General Anesthetic Recall: No
Unplanned Admission: No
Post Op Hydration Adequate: Yes
[2024-06-29] MEDS: TYLENOL 1000 MG PO ×3 (06:56→22:16)
[2024-06-29 07:05] LABS: Glucose - Point of Care 119 mg/dl (70-99)
[2024-06-29] MEDS: PROTONIX 40 MG PO (08:12)
[2024-06-29] MEDS: BACTROBAN 2% OINTMENT 1 APPLIC NASAL ×2 (08:12→19:26)
[2024-06-29] MEDS: PLAVIX 75 MG PO (08:12)
[2024-06-29] MEDS: LOPRESSOR 12.5 MG PO ×2 (08:12→19:26)
[2024-06-29] MEDS: PACERONE 200 MG PO ×3 (08:12→22:16)
[2024-06-29] MEDS: NEURONTIN 100 MG PO ×3 (08:12→22:16)
[2024-06-29] MEDS: LOW STRENGTH ASPIRIN 81 MG PO (08:13)
[2024-06-29] MEDS: SENOKOT-S 1 TABLET PO ×2 (08:13→19:26)
[2024-06-29] MEDS: FEOSOL 325 MG PO (08:13)
[2024-06-29] MEDS: VITAMIN C 500 MG PO (08:13)
[2024-06-29] MEDS: MUCINEX 600 MG PO ×2 (08:13→19:26)
[2024-06-29] MEDS: ROXICODONE 2.5 MG PO (08:14)
[2024-06-29] MEDS: MAGNESIUM OXIDE PO ×2 (08:21→19:26)
[2024-06-29] MEDS: LIDOCAINE 4% PATCH 1 PATCH TOPICAL (08:22)
--- NOTE | 2024-06-29 08:28 | W.PN.INTV ---
Today's Communication / Plan
Recommendations
Up OOB is tolerating
Cardiac rehab consult
Pain control
Removal of R�IJ cordis per cardiothoracic surgery team
Removal of chest tubes per cardiothoracic surgery team
Wean down supplemental O2 while maintaining SpO2 >90-94%
If resting SaO2 <96% on room air then check ambulatory pulse oximetry prior to discharge
Patient currently remains CVICU status on insulin drip. Plan today is to discontinue insulin drip. Once he is downgraded to CVICU�telemetry status then we will sign off at that time. Please call back with any additional questions or concerns.
Assessment
-
Assessment: 68-year-old male non-smoker with a past medical history of hyperlipidemia, hypertension, CAD and BPH who initially was transferred here from [facility] for left heart catheterization due to NSTEMI. He initially went to
[facility] ER with chest pain. Initial EKG reportedly showed RBBB with later EKG showing subtle ST elevations in lead V2 and ST depressions in V5�6. He was diagnosed with NSTEMI and continued to have chest heaviness. Transthoracic echo
performed at [facility] showed preserved LVEF at 50% with no significant valvular disease. Heparin drip + nitroglycerin drip started and he was transferred here to [place] for cardiac catheterization. Left heart catheterization performed on 06/26/2024
showing severe multivessel CAD with what appeared to be short segment BOARD WINDER of the LAD with culprit lesion thought to be the second obtuse marginal branch. He also had elevated LVEDP of 13 mmHg. Cardiothoracic surgery was consulted and
cardiothoracic intervention was reviewed in detail with risks and benefits and the patient agreed to intervention. On 06/28/2024 he underwent CABG x 3 and there were no complications. He was transferred to the CVICU with bilateral pleural chest
tubes and mediastinal chest tubes x 2. Defensive Line Coach service is now consulted for additional management/recommendations.
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
Impression:
#Multivessel CAD including BOARD WINDER of the LAD with recent NSTEMI s/p CABG x 3 (LARS to LAD, GSV to OM1 and GSV to OM2 - POD#1)
#Anemia
#NSTEMI
#Hyperlipidemia
#Hypertension
#History of ME
#BPH
Plan:
Patient was successfully extubated on 06/28/2024 to nasal cannula and is currently breathing comfortably and saturating well on 2 L/min with SpO2 99%
Continue to wean down supplemental O2 while maintaining SpO2 >90-94%
prn nebulized bronchodilators � not currently bronchospastic
If resting SaO2 <96% on room air then check ambulatory pulse oximetry prior to discharge
Encourage incentive spirometer use 10x per hour for at least 4 hours the
Removal of R�IJ cordis per cardiothoracic surgery team
Maintain MAP>65
Replete electrolytes with K>4, Mg>2
Monitor chest tube output (bilateral pleural chest tubes + mediastinal chest tubes x 2)
Monitor hemoglobin
Monitor platelet count and coags
Transfuse blood products as needed to maintain Hb>7g/dL, plt>50k (given post-operative status)
CT surgery managing chest tubes
Monitor blood sugar to maintain euglycemia with goal BG 140-180
Insulin drip per protocol - planned to be discontinued today
Aspiration precautions
DVT prophylaxis
Early nutrition
Early mobilization
Patient currently remains CVICU status on insulin drip. Plan today is to discontinue insulin drip. Once he is downgraded to CVICU�telemetry status then we will sign off at that time. Please call back with any additional questions or concerns and
thank you for allowing us to be involved in the care of this patient.
Total time spent today was 76 minutes for this encounter. Time includes reviewing laboratory test/imaging results, reviewing pertinent medical records, obtaining and reviewing medical history, performing an appropriate exam, ordering medications,
tests and procedures. Time also includes documentation of this encounter, coordinating patient care and communicating with other healthcare professionals. Total time does not include separately billed tests performed on this date of service.
Subjective Dataa
Subjective Data
Date of Service:
Date of Service: June 29, 2024
Chief Complaint: Defensive Line Coach Follow Up
Subjective:
Patient was seen and evaluated today at bedside. Patient's , Lizbeth, and daughter, Joan, at bedside and all questions were answered. Currently patient's heart rate 77, BP 116/71 and saturating 99% on 2 L/min. Currently on insulin drip at
1.3 units/hr. chest tubes x [address] He denies shortness of breath, [place], abdominal pain, nausea, fevers or chills.
Review of Systems
General: Other (Negative unless mentioned above)
Objective Data
Data Reviewed
Vital Signs / I&O / Oxygen:
Vital Signs
Temp Pulse Resp BP Pulse Ox
100.1 F 76 20 110/69 94
06/29/24 08:00 06/29/24 08:30 06/29/24 08:00 06/29/24 08:12 06/29/24 08:48
Intake and Output
06/28/24 06/29/24 06/30/24
06:59 06:59 06:59
Intake Total 804 / 804 513.0 / 513.0 12.3 / 12.3
Output Total 1233 / 1233 70 / 70
Balance 804 / 804 -720.0 / -720.0 -57.7 / -57.7
SaO2 94
Nasal Cannula flow liters per 2
minute
Physical Exam
General: Respiratory Distress (negative), Comfortable, Chills (negative) and Sweats (negative)
HEENT: Normocephalic, Anicteric and Other (R-IJ cordis in place)
Cardiovascular: S1-S2, Rub (negative) and Peripheral Edema (negative)
Respiratory: Wheeze (negative), Crackles (Right base), Rhonchi (negative), Non-Labored Respirations, Stridor (negative) and Chest Tube (Bilateral pleural chest tubes + mediastinal chest tubes x 2)
GI: Soft, Non Distended, Non Tender and Normal Bowel Sounds
Neurology: AO x 3 and Tremors (negative)
Skin: Warm, Dry, Cyanosis (negative) and Jaundice (negative)
Labs/Micro/Reports
Lab Data
06/29/24 03:15
06/29/24 03:15
Laboratory Results
06/28/24 06/28/24
12:56 14:45
PT 16.8 H
INR 1.31
APTT 32.0
pH 7.41 7.40
pCO2 42 42
pO2 144 H 111 H
HCO3 26.6 26.0
O2 Delivery Level vent
Microbiology
06/26/24 17:45 Nose MRSA Screen - Final
No Methicillin Resistant Staphylococcus aureus isolated.
--- NOTE | 2024-06-29 08:45 | PTCARENOTE ---
Received pt from mold shifter RN; pt AAOx3 and resting comfortably in chair; NSR BBB on monitor and VSS: RIJ Cordis and PIV x2 all patent; Insulin drip infusing per Glycemic protocol see flow sheet for details; Lungs diminished; IS to 750; CT x4 to
-20 wall suction no air leak and no crepitus noted; hypoactive bowel sounds; pt DTV at 1130 since Hart removal; palpable pulses throughout; no edema noted; all surgical sites C/D/I; see nursing documentation for further details.
[2024-06-29 09:01] LABS: Glucose - Point of Care 131 mg/dl (70-99)
--- NOTE | 2024-06-29 11:13 | CM ---
Chart reviewed. Patient is independent of ADLS, lives with his in a 2 STH, 1st floor set up, 0 DELORIS, 0 DME. Plan is for the patient to return home with CT Transitional RN. CM to follow
[2024-06-29 11:19] LABS: Glucose - Point of Care 102 mg/dl (70-99)
[2024-06-29] MEDS: NSS IV (13:15)
[2024-06-29 13:20] LABS: Glucose - Point of Care 109 mg/dl (70-99)
--- NOTE | 2024-06-29 13:23 | PTCARENOTE ---
Glycemic protocol discontinued per order; NSR BBB on monitor and VSS: assessment unchanged and pt resting comfortably in chair.
--- NOTE | 2024-06-29 14:30 | W.PN.CARDCBS ---
Today's Communication / Plan
-
usual post operative care
appreciate excellent surgical care
we will follow with you
Impression / Plan
-
.
PCP: Ximena Fonseca,
CDY: Nick Louise MD (none prior to admission, seen in ER)
HPI: 68 y/o, PMH sig for untreated severe dyslipidemia, active doing yard work and walking dog daily without symptoms.
New onset chest heaviness and arm tingling that started at 2AM prior to going to bed. Denies diaphoresis, dyspnea, palps. No relief from tylenol and therefore brought him to ER. Initial EKG NSR w/RBBB but repeat showed subtle anterior ST
elevations with lateral ST depressions. First HS troponin 17 but repeat elevated to 89 with correlating CK 169, MB 11.4. Started on heparin gtt and given aspirin 324mg, as well as SLNTG for relief of symptoms. BP elevated 160-180s
Echo at [facility] today- preserved LVSF, EF 50%, anteroseptal, apical anterior, apical HK, no sig valvular abnormalities.
Transferred for [facility] today.
IMPRESSION:
Status post CABG with CABRERA to LAD, GSV to OM1, GSV to OM 2 -06/28/2024
Acute NSTEMI
Anterior/apical HK
Multivessel CAD
Severe untreated HLD (last LDL 172 03/2024)
HTN
RBBB
Inguinal hernia (2012)
PLAN:
Patient seen POD#1
Drips to off
Tubes still in but usual post op removal to start soon
Remains in sinus rhythm
Discussed with nursing and CT surgery PA's
Followup w/Dr. Louise at [facility] at discharge
Progress Note - Electrical Test Engineer
Subjective
Date of Service: June 29, 2024
feels well
ate a full lunch
Objective
Labs:
06/29/24 03:15
06/29/24 03:15
Labs
Hgb 12.1 g/dL (13.0-18.0) L 06/29/24 03:15
Hct 35.4 % (39.0-52.0) L 06/29/24 03:15
Plt Count 190 10^3/uL (130-400) 06/29/24 03:15
PT 16.8 Sec (11.4-14.6) H 06/28/24 12:56
INR 1.31 06/28/24 12:56
APTT 32.0 Sec (23.4-35.0) 06/28/24 12:56
Sodium 137 mmol/L (135-145) 06/29/24 03:15
Potassium 4.1 mmol/L (3.5-5.1) 06/29/24 03:15
BUN 19 mg/dl (9-20) 06/29/24 03:15
Creatinine 0.8 mg/dL (0.7-1.3) 06/29/24 03:15
Glucose 94 mg/dl (70-99) 06/29/24 03:15
Troponins
06/26/24 06/27/24 06/27/24
19:52 03:34 08:18
Troponin I 10.100 H* D 19.500 H* D 22.300 H*
06/27/24
14:32
Troponin I 17.800 H*
Vital Signs and I&O:
Vital Signs
Temp Pulse Resp BP Pulse Ox
98.9 F 78 20 117/85 97
06/29/24 11:00 06/29/24 13:15 06/29/24 13:00 06/29/24 13:00 06/29/24 13:15
Vital Signs
Temp Pulse Resp BP Pulse Ox
98.9 F 78 20 117/85 97
06/29/24 11:00 06/29/24 13:15 06/29/24 13:00 06/29/24 13:00 06/29/24 13:15
Intake & Output
06/27/24 06/28/24 06/29/24 06/30/24
06:59 06:59 06:59 06:59
Intake Total 640 / 640 804 / 804 513.0 / 513.0 37.2 / 37.2
Output Total 1700 / 1700 1233 / 1233 100 / 100
Balance -1060 / -1060 804 / 804 -720.0 / -720.0 -62.8 / -62.8
Physical Exam
Physical Exam
heent ncat
cordis line in place
sternum intact
mediastinal/pleural tubes noted
cor regular no rub no murmur
lungs diminished
aao x 3
non focal neurologically
--- NOTE | 2024-06-29 16:33 | PTCARENOTE ---
Assessment unchanged; NSR BBB on monitor and VSS; family at bedside and pt resting comfortably in chair.
[2024-06-29] MEDS: XALATAN OPHTHALMIC SOLUTION 1 DROP OPHTH (17:20)
[2024-06-29] MEDS: LIPITOR 80 MG PO (17:20)
--- NOTE | 2024-06-29 20:00 | PTCARENOTE ---
Assumed care of patient at 1900. Patient found OOB in chair at time of assessment. Patient is AOx4, follows commands appropriately, moves all extremities. Lung sounds are diminished in the bases saO2 is 96% on 2L via NC, CTx4: R/L pleural to one
atrium draining serosanguineous and 2x meds to one atrium draining serosanguineous. Heart sounds are audible, a rub is present on auscultation, patient is SR with BBB on the monitor, patient has normal palpable pulses and there is no observable
edema. Patient has active BS in all four quadrants and is voiding clear yellow. There is a sternal incision with aquacell dressing CDI, R groin puncture approx with surg adhesive SITA and RLE incision approx with surg adhesive. Patient has R IJ
cordis with KVO, R wrist 18G and L FA 20G. VSS. No c/o pain. Call pierson within reach.
[2024-06-30] VITALS (16 sets, daily range): BP systolic 111–152; BP diastolic 64–78; PULSE 80; O2SAT 94–95; BMI 28.2
--- NOTE | 2024-06-30 00:30 | PTCARENOTE ---
Patient reassessed. VSS. No c/o pain. Call pierson within reach. Remains in SR with BBB on the monitor.
[2024-06-30 03:34] LABS: Hematocrit 31.9 % (39.0-52.0); Hemoglobin 10.6 g/dL (13.0-18.0); Mean Corp Hgb Conc. 33.2 g/dL (33.0-37.0); Mean Corpuscular Hgb 31.5 pg (27.0-31.0); Mean Corpuscular Volume 94.7 fL (80.0-94.0); Mean Platelet Volume 10.4 fL (7.4-10.4); Platelet Count 194 10^3/uL (130-400); Red Blood Cell Count 3.37 10^6/uL (4.70-6.10); Red Cell Dist. Width 12.8 % (11.5-14.5); White Blood Cell Count 13.4 10^3/uL (4.8-10.8)
[2024-06-30 03:41] LABS: Blood Urea Nitrogen 25 mg/dl (9-20); Carbon Dioxide 30 mmol/L (22-30); Chloride 102 mmol/L (98-107); Estimated Creatinine Clearance 81 ml/min; Glucose 114 mg/dl (70-99); Magnesium 2.3 mg/dl (1.6-2.3); Potassium 4.3 mmol/L (3.5-5.1); Sodium 134 mmol/L (135-145); eGFR > 60.00
[2024-06-30] MEDS: TYLENOL 1000 MG PO ×3 (06:29→21:39)
--- NOTE | 2024-06-30 06:45 | PTCARENOTE ---
Patient reassessed. VSS. No c/o pain. AM hygiene care provided. AM labs obtained. CT wound dressing changed. Assisted OOB to chair without incident. Call pierson within reach.
--- NOTE | 2024-06-30 06:52 | W.PN.CT ---
Today's Communication / Plan
-
-pod #2
-no issues overnight
-CT outputs: 2 meds 70/180, 2 pleur 70/120 in 12/24 hrs
-wean off O2 as tolerated - pOx 96% on 2L
-current meds (ASA, Plavix, Lipitor, Lopressor, Amio, Feosol, Protonix)
-encourage IS, OOB
Assessment / Plan
-
- Mv-CAD/ NSTEMI - s/p CABG x 3 (LARS to LAD, GSV to OM1, GSV to OM2) on 06/28/[address] Corbin, pod #2
- Post-HORACE: LVEF 55-60%, no sig valvular heart disease
- HTN/HLD
- BPH
- Inguinal hernia repair 2012
- Cataracts
- Non-smoker
- Acute postop blood loss anemia - stable
- Acute postop atelectasis
- Suspected acute postop pericarditis/+ rub
- Acute postop hypovolemia with with subsequent hypervolemia
Discussed patient care with: Nursing and Care Team
Subjective
-
Date of Service: June 30, 2024
Objective Data
-
PT 16.8 Sec (11.4-14.6) H 06/28/24 12:56
INR 1.31 06/28/24 12:56
APTT 32.0 Sec (23.4-35.0) 06/28/24 12:56
Vital Signs
Vital Signs
Temp Pulse Resp BP Pulse Ox
99.2 F 68 20 131/75 96
06/29/24 23:00 06/29/24 23:00 06/29/24 23:00 06/29/24 23:00 06/29/24 23:00
CT Intake/Output/Weight
06/29/24 06/29/24 06/30/24
06:59 18:59 06:59
Intake Total 315.9 / 513.0 37.2 / 77.2 40 / 77.2
Output Total 665 / 1233 660 / 1205 545 / 1205
Balance -349.1 / -720.0 -622.8 / -1127.8 -505 / -1127.8
SaO2: 96
Physical Exam
-
General: Awake and AOx3
Cardiovascular: Regular rate & rhythm, No Murmurs and Rub
Respiratory: Decreased Breath Sounds (no wheeze)
Sternum: Stable
Incision: Clean, Dry and Intact
Extremities: No Edema (1+DPs b/l)
Data Reviewed
-
Lab Results: Results Reviewed
Medications: Active Meds Reviewed
Chest X-Ray: Report Reviewed and Image Reviewed
ECG: Report Reviewed and Image Reviewed
--- NOTE | 2024-06-30 07:00 | PTCARENOTE ---
Bedside walking rounds. Patient seen on rounds resting in chair. Room air. Plan: ambulate/dc all chest tubes this qam.
[2024-06-30] MEDS: MUCINEX 600 MG PO ×2 (09:15→20:07)
[2024-06-30] MEDS: LIDOCAINE 4% PATCH 1 PATCH TOPICAL (09:15)
[2024-06-30] MEDS: LOPRESSOR 12.5 MG PO ×2 (09:16→20:07)
[2024-06-30] MEDS: MAGNESIUM OXIDE 500 MG PO ×2 (09:16→20:06)
[2024-06-30] MEDS: FEOSOL 325 MG PO (09:16)
[2024-06-30] MEDS: PLAVIX 75 MG PO (09:16)
[2024-06-30] MEDS: PACERONE 200 MG PO ×3 (09:16→21:39)
[2024-06-30] MEDS: NEURONTIN 100 MG PO ×3 (09:16→21:39)
[2024-06-30] MEDS: PROTONIX 40 MG PO (09:16)
[2024-06-30] MEDS: VITAMIN C 500 MG PO (09:17)
[2024-06-30] MEDS: LOW STRENGTH ASPIRIN 81 MG PO (09:17)
[2024-06-30] MEDS: BACTROBAN 2% OINTMENT 1 APPLIC NASAL ×2 (09:18→20:10)
[2024-06-30] MEDS: SENOKOT-S 1 TABLET PO ×2 (09:23→20:06)
[2024-06-30] MEDS: DIAMOX 250 MG PO (10:23)
--- NOTE | 2024-06-30 11:16 | W.PN.CARDCBS ---
Today's Communication / Plan
-
Doing well. Remains in sinus. Continue amiodarone.
Continue postop care status post CABG
Impression / Plan
-
.
PCP: Ximena Fonseca,
CDY: Nick Louise MD (none prior to admission, seen in ER)
HPI: 68 y/o, PMH sig for untreated severe dyslipidemia, active doing yard work and walking dog daily without symptoms.
New onset chest heaviness and arm tingling that started at 2AM prior to going to bed. Denies diaphoresis, dyspnea, palps. No relief from tylenol and therefore brought him to ER. Initial EKG NSR w/RBBB but repeat showed subtle anterior ST
elevations with lateral ST depressions. First HS troponin 17 but repeat elevated to 89 with correlating CK 169, MB 11.4. Started on heparin gtt and given aspirin 324mg, as well as SLNTG for relief of symptoms. BP elevated 160-180s
Echo at [facility] today- preserved LVSF, EF 50%, anteroseptal, apical anterior, apical HK, no sig valvular abnormalities.
Transferred for [facility] today.
IMPRESSION:
Status post CABG with CABRERA to LAD, GSV to OM1, GSV to OM 2 -06/28/2024
Acute NSTEMI
Anterior/apical HK
Multivessel CAD
Severe untreated HLD (last LDL 172 03/2024)
HTN
RBBB
Inguinal hernia (2012)
PLAN:
overall doing well. Removing chest tubes.
Remains in sinus rhythm. Continue amiodarone, metoprolol, aspirin, atorvastatin and Plavix
Hemoglobin at 10.6
Followup w/Dr. Louise at [facility] at discharge
Progress Note - Neurological Surgeon
Subjective
Date of Service: June 30, 2024
Denies chest pains or shortness of breath.
Objective
Labs:
06/30/24 03:17
06/30/24 03:17
Labs
Hgb 10.6 g/dL (13.0-18.0) L 06/30/24 03:17
Hct 31.9 % (39.0-52.0) L 06/30/24 03:17
Plt Count 194 10^3/uL (130-400) 06/30/24 03:17
PT 16.8 Sec (11.4-14.6) H 06/28/24 12:56
INR 1.31 06/28/24 12:56
APTT 32.0 Sec (23.4-35.0) 06/28/24 12:56
Sodium 134 mmol/L (135-145) L 06/30/24 03:17
Potassium 4.3 mmol/L (3.5-5.1) 06/30/24 03:17
BUN 25 mg/dl (9-20) H 06/30/24 03:17
Creatinine 0.9 mg/dL (0.7-1.3) 06/30/24 03:17
Glucose 114 mg/dl (70-99) H 06/30/24 03:17
Troponins
06/27/24
14:32
Troponin I 17.800 H*
Vital Signs and I&O:
Vital Signs
Temp Pulse Resp BP Pulse Ox
98.5 F 78 20 140/72 92
06/30/24 08:42 06/30/24 09:57 06/30/24 08:42 06/30/24 09:57 06/30/24 08:42
Vital Signs
Temp Pulse Resp BP Pulse Ox
98.5 F 78 20 140/72 92
06/30/24 08:42 06/30/24 09:57 06/30/24 08:42 06/30/24 09:57 06/30/24 08:42
Intake & Output
06/28/24 06/29/24 06/30/24 07/01/24
06:59 06:59 06:59 06:59
Intake Total 804 / 804 513.0 / 513.0 117.2 / 117.2
Output Total 1233 / 1233 2049 / 2049
Balance 804 / 804 -720.0 / -720.0 -1932.8 / -193.8
Physical Exam
Physical Exam
GEN: No distress, awake, Ox3
HEENT: supple, anicteric, mmm
LUNGS: CTA, no wheezes/rales
CV: Reg, S1/S2, 1/6 syst LSB, no murmur
ABD: soft, BS+, NT/ND
EXT: No edema
NEURO: Gross non-focal
SKIN: sternotomy
--- NOTE | 2024-06-30 12:00 | PTCARENOTE ---
No acute changes. Vitals stable. Room air.
[2024-06-30] MEDS: NSS 500 IV (14:20)
[2024-06-30] MEDS: LIPITOR 80 MG PO (18:03)
[2024-06-30] MEDS: XALATAN OPHTHALMIC SOLUTION 1 DROP OPHTH (18:03)
--- NOTE | 2024-06-30 18:10 | PTCARENOTE ---
Ambulated entire loop of CVICU: 450 feet: 3rd walk of day. See post activity vitals. NSR room air.
--- NOTE | 2024-06-30 20:00 | PTCARENOTE ---
Received pt from [facility]. Walking rounds completed. Pt assessment completed in bed. Pt is AAOx4. No neuro deficits noted. NSR with BBB on monitor. HR 72, B/P 126/70. Positive pulses throughout, generalized trace edema. Lungs clear, diminished in
bases. POX 97% RA. I/S 1000. Pt encouraged to use 10X/ hr. Pt voiding in bathroom. NBS, abdomen soft, non-tender to touch. Sternal incision with Aquacel dressing, C/D/I. C/T dressing dry and intact with old drainage noted. R Leg incision SCREENING UNIT REGISTERED NURSE,
approximated with surgical glue present. R groin puncture approximated, slight ecchymosis noted. 20g PVA in R arm intact, no redness or edema noted 18 g PVA in L arm, no redness or edema noted. Discussed plan of care with pt. Pt agrees with plan.
Will continue to monitor pt needs.
[2024-07-01] VITALS (9 sets, daily range): BP systolic 94–156; BP diastolic 72–84; PULSE 82; O2SAT 93–95; BMI 27.5
--- NOTE | 2024-07-01 | PTCARENOTE ---
Patient sleeping without difficulty. Assessment/Interventions as documented.
[2024-07-01] MEDS: TYLENOL 1000 MG PO ×2 (05:14→14:17)
--- NOTE | 2024-07-01 05:15 | PTCARENOTE ---
Patient A+A+Ox3. No neurological deficits noted. No c/o headache, dizziness or lightheadedness. Resting in bed without difficulty. Voiding without difficulty. Right I.J. Cordis intact and patent. AM lab work collected and sent. OOB in AM.
Assessment/Interventions as documented.
[2024-07-01 05:32] LABS: Hematocrit 32.9 % (39.0-52.0); Hemoglobin 11.2 g/dL (13.0-18.0); Mean Corpuscular Hgb 32.3 pg (27.0-31.0); Mean Corpuscular Volume 94.8 fL (80.0-94.0); Mean Platelet Volume 9.9 fL (7.4-10.4); Platelet Count 251 10^3/uL (130-400); Red Blood Cell Count 3.47 10^6/uL (4.70-6.10); Red Cell Dist. Width 12.7 % (11.5-14.5); White Blood Cell Count 10.7 10^3/uL (4.8-10.8)
[2024-07-01 05:37] LABS: Blood Urea Nitrogen 20 mg/dl (9-20); Calcium 8.3 mg/dl (8.4-10.2); Carbon Dioxide 26 mmol/L (22-30); Chloride 107 mmol/L (98-107); Estimated Creatinine Clearance 73 ml/min; Glucose 107 mg/dl (70-99); Magnesium 2.3 mg/dl (1.6-2.3); Potassium 4.3 mmol/L (3.5-5.1); Sodium 137 mmol/L (135-145); eGFR > 60.00
--- NOTE | 2024-07-01 06:18 | W.PN.CT ---
Today's Communication / Plan
-
-No major issues overnight. Hemodynamically and neurologically intact
-Off all drips
-D/C cordis
-F/U 2-view cxr
-Cont. current meds ((ASA, Plavix, Lipitor, Lopressor, Amio, Feosol, Protonix)
-Encourage use of IS
-OOB into chair/Ambulate
-D/C home
Assessment / Plan
-
- Mv-CAD/ NSTEMI - s/p CABG x 3 (LARS to LAD, GSV to OM1, GSV to OM2) on 06/28/[address] Corbin, pod #3
- Post-HORACE: LVEF 55-60%, no sig valvular heart disease
- HTN/HLD
- BPH
- Inguinal hernia repair 2012
- Cataracts
- Non-smoker
- Acute postop blood loss anemia - stable
- Acute postop atelectasis
- Suspected acute postop pericarditis/+ rub
- Acute postop hypovolemia with with subsequent hypervolemia
Discussed patient care with: Cardiology, Nursing, Respiratory Therapy, Pharmacy and Care Team
Subjective
-
Date of Service: July 01, 2024
Objective Data
-
Lab Results
07/01/24 05:03
07/01/24 05:03
PT 16.8 Sec (11.4-14.6) H 06/28/24 12:56
INR 1.31 06/28/24 12:56
APTT 32.0 Sec (23.4-35.0) 06/28/24 12:56
Vital Signs
Vital Signs
Temp Pulse Resp BP Pulse Ox
98.8 F 68 16 133/75 98
07/01/24 05:00 07/01/24 05:00 07/01/24 05:00 07/01/24 05:00 07/01/24 05:00
CT Intake/Output/Weight
06/30/24 06/30/24 07/01/24
06:59 18:59 06:59
Intake Total 80 / 117.2 1130 / 1690 560 / 1690
Output Total 139 / 0 1425 / 3075 1650 / 3075
Balance -1310 / -1932.8 -295 / -1385 -1090 / -1385
SaO2: 98 (2L)
Physical Exam
-
General: Awake, Oriented and AOx3
Cardiovascular: Regular rate & rhythm, No Murmurs, No Rub and No Gallop
Respiratory: Decreased Breath Sounds (at bases, otherwise clear)
Sternum: Stable
Incision: Clean, Dry, Intact and Dressing Intact
Extremities: Other (+trace edema)
Data Reviewed
-
Lab Results: Results Reviewed
Medications: Active Meds Reviewed
Chest X-Ray: Report Reviewed and Image Reviewed
ECG: Report Reviewed and Image Reviewed
[2024-07-01] MEDS: VITAMIN C 500 MG PO (08:36)
[2024-07-01] MEDS: LOW STRENGTH ASPIRIN 81 MG PO (08:36)
[2024-07-01] MEDS: NEURONTIN 100 MG PO ×2 (08:36→14:17)
[2024-07-01] MEDS: PACERONE 200 MG PO ×2 (08:36→14:17)
[2024-07-01] MEDS: FEOSOL 325 MG PO (08:36)
[2024-07-01] MEDS: LASIX 40 MG PO (08:36)
[2024-07-01] MEDS: SENOKOT-S 1 TABLET PO (08:36)
[2024-07-01] MEDS: KCL 20 MEQ PO (08:36)
[2024-07-01] MEDS: PROTONIX 40 MG PO (08:36)
[2024-07-01] MEDS: PLAVIX 75 MG PO (08:36)
[2024-07-01] MEDS: LOPRESSOR 12.5 MG PO (08:36)
[2024-07-01] MEDS: MUCINEX 600 MG PO (08:36)
[2024-07-01] MEDS: MAGNESIUM OXIDE 500 MG PO (08:36)
[2024-07-01] MEDS: BACTROBAN 2% OINTMENT 1 APPLIC NASAL (08:37)
[2024-07-01] MEDS: NSS IV (08:37)
[2024-07-01] MEDS: LIDOCAINE 4% PATCH TOPICAL (08:37)
--- NOTE | 2024-07-01 09:03 | W.PN.CARDCBS ---
Today's Communication / Plan
-
Remains in sinus rhythm. Doing well status post CABG. Continue amiodarone and metoprolol.
Continue aspirin, Plavix, Imdur atorvastatin.
Impression / Plan
-
.
PCP: Ximena Fonseca,
CDY: Nick Louise MD (none prior to admission, seen in ER)
HPI: 68 y/o, PMH sig for untreated severe dyslipidemia, active doing yard work and walking dog daily without symptoms.
New onset chest heaviness and arm tingling that started at 2AM prior to going to bed. Denies diaphoresis, dyspnea, palps. No relief from tylenol and therefore brought him to ER. Initial EKG NSR w/RBBB but repeat showed subtle anterior ST
elevations with lateral ST depressions. First HS troponin 17 but repeat elevated to 89 with correlating CK 169, MB 11.4. Started on heparin gtt and given aspirin 324mg, as well as SLNTG for relief of symptoms. BP elevated 160-180s
Echo at [facility] today- preserved LVSF, EF 50%, anteroseptal, apical anterior, apical HK, no sig valvular abnormalities.
Transferred for [facility] today.
IMPRESSION:
Status post CABG with CABRERA to LAD, GSV to OM1, GSV to OM 2 -06/28/2024
Acute NSTEMI
Anterior/apical HK
Multivessel CAD
Severe untreated HLD (last LDL 172 03/2024)
HTN
RBBB
Inguinal hernia (2012)
PLAN:
overall doing well.
Remains in sinus rhythm. Continue amiodarone, metoprolol, aspirin, atorvastatin and Plavix
Hemoglobin at 11.2
Followup w/Dr. Louise at [facility] at discharge
Progress Note - Livestock Farm Manager
Subjective
Date of Service: July 01, 2024
Feels well. No significant chest pain or shortness of breath.
Objective
Labs:
07/01/24 05:03
07/01/24 05:03
Labs
Hgb 11.2 g/dL (13.0-18.0) L 07/01/24 05:03
Hct 32.9 % (39.0-52.0) L 07/01/24 05:03
Plt Count 251 10^3/uL (130-400) D 07/01/24 05:03
PT 16.8 Sec (11.4-14.6) H 06/28/24 12:56
INR 1.31 06/28/24 12:56
APTT 32.0 Sec (23.4-35.0) 06/28/24 12:56
Sodium 137 mmol/L (135-145) 07/01/24 05:03
Potassium 4.3 mmol/L (3.5-5.1) 07/01/24 05:03
BUN 20 mg/dl (9-20) 07/01/24 05:03
Creatinine 1.0 mg/dL (0.7-1.3) 07/01/24 05:03
Glucose 107 mg/dl (70-99) H 07/01/24 05:03
Vital Signs and I&O:
Vital Signs
Temp Pulse Resp BP Pulse Ox
98.8 F 68 16 133/75 98
07/01/24 05:00 07/01/24 05:00 07/01/24 05:00 07/01/24 05:00 07/01/24 06:20
Vital Signs
Temp Pulse Resp BP Pulse Ox
98.8 F 68 16 133/75 98
07/01/24 05:00 07/01/24 05:00 07/01/24 05:00 07/01/24 05:00 07/01/24 06:20
Intake & Output
06/29/24 06/30/24 07/01/24 07/02/24
06:59 06:59 06:59 06:59
Intake Total 513.0 / 513.0 117.2 / 117.2 1700 / 1700
Output Total 1233 / 1233 2049 3275 / 327
Balance -720.0 / -720.0 -1932.8 / -1932.8 -1575 / -1575
Physical Exam
Physical Exam
GEN: No distress, awake, Ox3
HEENT: supple, anicteric, mmm
LUNGS: CTA, no wheezes/rales
CV: Reg, S1/S2, 1/6 syst LSB, no gallop
ABD: soft, BS+, NT/ND
EXT: No edema
NEURO: Gross non-focal
SKIN: No rash
--- NOTE | 2024-07-01 09:41 | PTCARENOTE ---
assumed care of pt from previous shift RN, sinus rhythm on tele, VSS, + peripheral pulses, no edema. Lungs clear, coughing and deep breathing encouraged. +bs, tolerating PO intake. Voids spontaneously. Surgical sites stable. Cordis and PIV flush
easily. Plan of care reviewed w the pt and questions encouraged.
--- NOTE | 2024-07-01 10:54 | PTCARENOTE ---
krystal d/c'ed as ordered.
--- NOTE | 2024-07-01 13:43 | W.[place]-PDMP ---
[place]-PD[place]
-
Checked the [place]- Prescription Drug Monitoring Program website, no red flags identified; safe to proceed with prescription.
--- NOTE | 2024-07-01 14:44 | PTCARENOTE ---
IV lines and tele monitor d/mayte. Discharge instructions, medication list and follow up appointments reviewed w the pt and his family. Questions encouraged.
--- NOTE | 2024-07-01 18:01 | W.DCSUMMARY ---
Discharge Summary
Discharge Data
Date of Admission: 06/26/24
Date of Discharge: 07/01/24
Total time spent discharging patient (in min): 40
-
Pending Results: No
Hospital Course
Primary care physician:
Dr. Ximena Fonseca MD.
Outpatient poultry sexer:
Dr. Mario Ramirez MD.
Inpatient consultants:
[facility]
Procedures:
1. Coronary artery bypass grafting x 3 (left internal thoracic artery to left anterior descending coronary artery, greater saphenous vein to obtuse marginal 1, and greater saphenous vein to obtuse marginal 2) by Dr. Octavio Corbin MD. on
06/28/24.
Primary Diagnosis:
1. Multivessel coronary artery disease including chronic total occlusion of left anterior descending coronary artery
2. Non-ST elevated myocardial infarction
3. Hypertension
4. Hyperlipidemia
5. Benign prostatic hypertrophy
6. History of inguinal hernia repair 2012
7. History of cataracts
8. Acute postoperative blood loss anemia�stable
9. Acute postoperative atelectasis
10. Suspected acute postoperative pericarditis with positive rub
11. Acute postoperative hypovolemia with subsequent hypervolemia
Secondary Diagnoses:
Same as the above
HPI:
Patient is an extremely pleasant 68-year-old male with multivessel coronary artery disease including a chronic total occlusion of his left anterior descending coronary artery and significant left circumflex disease. He presented to [facility] [place] [facility] with chest heaviness and right arm tingling. Further workup in the emergency department revealed EKG changes and after serial troponins the patient was ruled in for a non-ST elevated myocardial infarction. Transthoracic echocardiogram was
performed showing preserved left ventricular ejection fraction of 50%. Patient was stabilized and started on nitroglycerin and heparin drips. He was transferred to [facility] for further evaluation and workup. Cardiac catheterization was
performed by Dr. Mario Ramirez once the patient arrived to [facility] and revealed subsequent multivessel coronary artery disease. Cardiothoracic surgery surgery was consulted for coronary artery revascularization. Patient was seen by the
cardiothoracic surgery service as well as attending physician and deemed an appropriate candidate to undergo coronary artery bypass grafting.
Hospital course:
Patient tolerated the procedure well. He remained intubated. He was transported from the operating room to the cardiovascular intensive care unit where he underwent his postoperative recovery. Patient was extubated in routine fashion on
postoperative day 0 at 1515. Levophed was titrated off. Overall, the patient's postoperative course was uneventful. He was progressed in routine fashion. On postoperative day 1 the patient was started on Cardene for hypertensive control which
was later weaned off. The patient was declined, insulin drip was discontinued, and he was transitioned to telemetry phase. On postoperative day #2 he was diuresed with Diamox 250 mg x 1 with adequate urine output, and his chest tubes were removed
without issues. On postoperative day #3 two-view chest x-ray revealed no surgical concerns. His Cordis was discontinued. He continued diuresis with Lasix 40 mg IV x 1. The patient ambulated, completed stairs, and showered without difficulty.
Discussion was had with attending physician, and patient was medically cleared to be discharged to home on postoperative day #3.
Home medication changes:
See below
Discharge Plan
-
Patient Disposition: Home (Routine Discharge)
Discharge Diagnosis/Procedures: NSTEMI/ CABG x 3
Condition: Fair
Diet: Low Fat, Low Cholesterol and Low Sodium
Activity: No strenuous activity
Driving Restrictions: Not until seen by your Dr
Bathing Restrictions: OK to Shower
Other Services: Cardiac Rehab
Activity Restrictions/Additional Instructions:
Please call [facility] to get scheduled for outpatient Cardiac Rehab. P: [phone]
ACTIVITY:
-No strenuous activity: no heavy lifting, pushing, pulling anything over 15 pounds for one month
-continue to use stairs as tolerated
DRIVING RESTRICTIONS:
-No driving for one month or until approved by your surgeon
WOUND CARE:
-Shower daily. Use soap & water.
-No lotions, creams or powders on incision area.
DIET:
-continue a low fat/low cholesterol diet.
-IF you are diabetic, continue carb controlled diet.
CARDIAC REHAB:
-Please make appointment to start in 5-6 weeks with your local hospital program. (See Cardiac Rehabilitation Discharge Booklet).
SPECIALTY INSTRUCTIONS:
-Weigh yourself daily. Call your physician for any weight gain/loss of 3 lbs overnight or 5 lbs in one week.
-REPORT any clicking noise or uneven appearance of your sternum to your surgeon immediately.
-If you smoke, you are instructed to quit. The [place] [employer] phone number is [phone]
Stand Alone Forms: DC Instructions- Cath/EP Lab
Referrals:
CT Transitional Care Nurse [Outside] (The Cardiothoracic Transitional Care Nurse will call you to set up a visit in 1-2 days.)
Ximena Fonseca, DO [Family Provider] - in one to two months
Kevin Louise MD [Non-Admitting Privileges] - 08/16/24 10:30 am (Cardiology followup appointment)
Octavio Corbin MD [Active] - 08/01/24 1:30 pm
Prescriptions:
New
lidocaine 4 % Adhesive Patch,Medicated
1 patch topical DAILY Qty: 30 0RF
Rx Instructions:
Apply to chest/back, may cut patch in 1/2
atorvastatin 80 mg Tablet
80 mg PO QPM Qty: 30 1RF
metoprolol tartrate 25 mg Tablet
12.5 mg PO Q12 Qty: 30 1RF
aspirin 81 mg Tablet,Chewable
81 mg PO DAILY Qty: 0 0RF
Rx Instructions:
Please purchase over the counter.
clopidogrel 75 mg Tablet
75 mg PO DAILY Qty: 30 1RF
pantoprazole 40 mg Tablet,Delayed Release (Dr/Ec)
40 mg PO DAILY Qty: 30 0RF
Rx Instructions:
GI prophylaxis with Plavix. Obtain refills from PCP/cardiology
Remove Patch [Remove Lidocaine Patch]
1 patch topical DAILY@1999 Qty: 1 0RF
Rx Instructions:
Remove patch nightly at 1999
sennosides-docusate sodium 8.6-50 mg Tablet
1 tab PO Q12 Qty: 30 0RF
Rx Instructions:
Take while using Narcotic. Hold/stop for loose stools/diarrhea
acetaminophen 325 mg Tablet
650 mg PO Q4HPRN PRN (Reason: mild pain,headache,temp >101F ) Qty: 0 0RF
Rx Instructions:
Please purchase [id number]
oxycodone 5 mg Tablet
2.5 mg PO Q6HPRN PRN (Reason: moderate-severe pain ) Qty: 24 0RF
Rx Instructions:
Ongoing pain control Attending Dr Octavio Corbin
gabapentin 100 mg Capsule
100 mg PO TID PRN (Reason: nerve pain ) Qty: 30 0RF
Rx Instructions:
Take for mild pain/nerve pain
furosemide [Lasix] 40 mg tablet
40 mg PO DAILY Qty: 4 0RF
Rx Instructions:
Take Lasix 40 mg daily x4 days and then stop unless instructed otherwise.
potassium chloride 20 mEq tablet extended release
20 meq PO DAILY Qty: 4 0RF
Rx Instructions:
Take Potassium Cl 20 meq daily w/ Lasix x4 days and then stop unless instructed otherwise
Continued
latanoprost 0.005 % Drops
1 drp OPHTHALMIC (EYE) QPM
Discharge Orders:
Discharge Patient (As Directed); Ordered 07/01/24
Ordered By: Roxy Coyne
Care Plan Goals
Care Plan Goals:
Problem: Readiness for enhanced knowledge related to diagnosis and treatment plan
Goal: Understand your diagnosis and treatment plan needs, including medications if applicable.
Instructions: Know your diagnosis, underlying causes and treatment plan options, including medications if applicable. Consult with your health care team to learn about your diagnosis and treatment plan, including medications if applicable.
Discharge Date and Time
Discharge Date/Time: 07/01/24 15:25
Print Language: [place] CITIZEN
== END 2024-07-01 15:25 | disposition home or self-care (01) | DRG 234 ==
LOC: CVICU 15:46
PROVIDERS: Anesthesiology; Clinical Nurse Specialist Acute Care; Nurse Practitioner; Thoracic Surgery (Cardiothoracic Vascular Surgery); ADMITTING PHYSICIAN Internal Medicine Interventional Cardiology; ATTENDING PHYSICIAN Thoracic Surgery (Cardiothoracic Vascular Surgery); CONSULT PHYSICIAN Internal Medicine Critical Care Medicine; FAMILY PHYSICIAN Family Medicine
PROC: 4A023N7 Measurement of Cardiac Sampling and Pressure, Left Heart, Percutaneous Approach (ICD-10-PCS; 2024-06-26)
PROC: B2111ZZ Fluoroscopy of Multiple Coronary Arteries using Low Osmolar Contrast (ICD-10-PCS; 2024-06-26)
PROC: 021109W Bypass Coronary Artery, Two Arteries from Aorta with Autologous Venous Tissue, Open Approach (ICD-10-PCS; 2024-06-28)
PROC: 02100ZC Bypass Coronary Artery, One Artery from Thoracic Artery, Open Approach (ICD-10-PCS; 2024-06-28)
PROC: B24BZZ4 Ultrasonography of Heart with Aorta, Transesophageal (ICD-10-PCS; 2024-06-28)
PROC: 06BP4ZZ Excision of Right Saphenous Vein, Percutaneous Endoscopic Approach (ICD-10-PCS; 2024-06-28)
PROC: 5A1221Z Performance of Cardiac Output, Continuous (ICD-10-PCS; 2024-06-28)
DX: I21.4 Non-ST elevation (NSTEMI) myocardial infarction (principal); D62 Acute posthemorrhagic anemia; J98.11 Atelectasis; I30.8 Other forms of acute pericarditis; I10 Essential (primary) hypertension; E78.00 Pure hypercholesterolemia, unspecified; I25.10 Atherosclerotic heart disease of native coronary artery without angina pectoris; N40.0 Benign prostatic hyperplasia without lower urinary tract symptoms; I45.10 Unspecified right bundle-branch block; E86.1 Hypovolemia; E87.70 Fluid overload, unspecified; I25.2 Old myocardial infarction; Z79.899 Other long term (current) drug therapy; Z82.49 Family history of ischemic heart disease and other diseases of the circulatory system
CPT/HCPCS: 71045; 71046; 71250; 80048; 80053; 80061; 81003; 81015; 82248; 82330; 82550; 82553; 82565; 82805; 82947; 82962; 83036; 83735; 84132; 84302; 84484; 84520; 85014; 85018; 85027; 85049; 85610; 85730; 86850; 86900; 86901; 86920; 87070; 87086; 93005; 93312; 93320; 93325; 93458; 93880; 94002; Q9967